=== PATIENT | male | born 1965 | race Caucasian/White ===

== ENCOUNTER 2019-02-03 09:06 | Inpatient (IN) | payer OTHER ==
[2019-02-03 09:20] VITALS: BMI 28.4
[2019-02-03] MEDS ORDERED: morphine CARPU-JECT 4 MG/1 ML DISP.SYRIN IVPUSH ONE (09:55)
[2019-02-03] MEDS ORDERED: SODIUM CHLORIDE 1,000 ML IV STA (10:02)
[2019-02-03] MEDS ORDERED: morphine SULFATE 4 MG/ML VIAL ONE (10:21)
[2019-02-03 10:54] LABS: BASO % 0.2 % (0-2.0); EOS % 2.6 % (0-4.5); HEMATOCRIT 37.1 % (35.4-49); HEMOGLOBIN 12.3 GM/dL (11.7-16.9); MCH 29.1 pg (25.7-33.7); MCHC 33.1 g/dl (32.0-35.9); MEAN CELL VOLUME 87.8 fl (80-96); MEAN PLT VOLUME 8.3 fl (7.5-11.1); MONO % 11.4 % (3.8-10.2); NEUT % 66.8 % (42.8-82.8); PLATELET COUNT 280 K/MM3 (134-434); RBC 4.23 M/mm3 (4.00-5.60); RDW 13.9 % (11.9-15.9); WHITE BLOOD COUNT 6.3 K/mm3 (4.0-10.0)
[2019-02-03 10:57] LABS: EPI CELLS 1.9 /HPF (0-5/HPF); URINE APPEARANCE CLEAR; URINE BACTERIA 6.3 /hpf (NEGATIVE); URINE BILIRUBIN NEGATIVE (NEGATIVE); URINE CASTS 8 /lpf (0-8); URINE COLOR YELLOW; URINE GLUCOSE (UA) NEGATIVE (NEGATIVE); URINE KETONE NEGATIVE (NEGATIVE); URINE LEUK ESTERASE 1+ (NEGATIVE); URINE NITRITE NEGATIVE (NEGATIVE); URINE PROTEIN NEGATIVE (NEGATIVE); URINE RBC 1 /hpf (0-4); URINE WBC 9 /hpf (0-5)
--- NOTE | 2019-02-03 11:05 | PDOC ---
Documentation entered by Valeri Gray SCRIBE, acting as scribe for Luisa Urias MD. Luisa Urias MD: This documentation has been prepared by the Marina salgado Amanda, SCRIBE, under my direction and personally reviewed by me in its entirety. I confirm that the documentation accurately reflects all work, treatment, procedures, and medical decision making performed by me. History of Present Illness - General Chief Complaint: Urinary Problem Stated Complaint: SENT BY PCP, Hematuria, urinary problem Time Seen by Provider: 02/03/19 09:28 History Source: Patient Exam Limitations: No Limitations - History of Present Illness Initial Comments: 02/03/19 10:13 The patient is a 53 year old male, with a significant past medical history of hypertension, CAD s/p 9 stents, MIs x 3, dystonia, MS, hypothyroidism, fecal transplant s/p chronic C.Diff, frequent UTIs, chronic catheter, and new diagnosis of gallstones, who presents to the emergency department with increased pain and swelling to his right testicle for 6 days despite use of antibiotics. He states he developed the pain and swelling to his right testicle on Friday with associated pain to his "bladder and kidneys." He states he was prescribed "an antibiotic" on Friday which he started. He states he developed a fever on Friday which is unlike any of his prior UTIs. He reports his Tmax on Friday at 103.7F which prompted him to call his urologist who prescribed Levaquin. The patient states he started the Levaquin regimen on Friday evening ( 500mg) and continued to have a low grade fever (100F) on Friday. He states his fever resolved yesterday, however, reports continued pain and swelling to his right testicle, as well as, pain to his lower abdomen. He reports the pain is constant and unremitting. He denies any improvement of his symptoms despite use of the antibiotics prescribed. He states he called his urologist this AM who advised the patient to come to the hospital for IV Abx Tx. He denies use of pain medications at home. Secondarily, the patient reports RUQ pain and nausea with associated dry heaving which he attributes to his new finding of gallstones. The patient denies chest pain, shortness of breath, headache and dizziness. The patient denies fever, chills, vomit, diarrhea and constipation. The patient denies dysuria, frequency, urgency and hematuria. Allergies: shellfish Social history: denies toxic habits Surgical history: Endoscopy. Colonoscopy, cardiac stents x9 PCP: Dr. Martin Mo Urology: Dr. Moore Past History - Past Medical History Allergies/Adverse Reactions: Allergies Allergy/AdvReac Type Severity Reaction Status Date / Time shellfish derived Allergy Verified 02/03/19 09:20 Home Medications: Ambulatory Orders Aspirin 81 mg PO DAILY 02/03/19 Atorvastatin Ca [Lipitor] 80 mg PO HS 02/03/19 Baclofen 10 mg PO DAILY 02/03/19 Duloxetine HCl [Cymbalta -] 90 mg PO DAILY 02/03/19 Fenofibrate Nanocrystallized [Tricor] 0 mg PO DAILY 02/03/19 Gabapentin [Neurontin] 600 mg PO TID 02/03/19 Levothyroxine Sodium [Synthroid] 137 mcg PO DAILY 02/03/19 Nadolol [Corgard] 60 mg PO DAILY 02/03/19 Oxybutynin Chloride [Oxybutynin Chloride ER] 0 mg PO DAILY 02/03/19 Ramipril 1.25 mg PO DAILY 02/03/19 Ranitidine HCl 100 mg PO DAILY 02/03/19 Ticagrelor [Brilinta] 60 mg PO DAILY 02/03/19 traZODone HCL [Trazodone HCl] 50 mg PO DAILY 02/03/19 Cardiac Disorders: Yes (CORONARY DIS) COPD: No GI Disorders: Yes Disorders: Yes Other medical history: chronic c-diff, had fecal transplant 4 years ago, MS, DYSTONIA - Surgical History Cardiac Surgery: Yes (9 stents) - Suicide/Smoking/Psychosocial Hx Smoking History: Never smoked Information on smoking cessation initiated: No Hx Alcohol Use: No Drug/Substance Use Hx: No Review of Systems - Review of Systems Able to Perform ROS?: Yes Comments:: 02/03/19 10:27 CONSTITUTIONAL: (+) fever. Absent: no chills, no fatigue EYES: Absent: visual changes ENT: Absent: ear pain, no sore throat CARDIOVASCULAR: Absent: chest pain, no palpitations RESPIRATORY: Absent: cough, no SOB GASTROINTESTINAL: (+) lower abdominal pain, nausea. Absent: no vomiting, no constipation, no diarrhea GENITOURINARY: (+) right testicular pain and swelling. kidney pain. suprapubic pain. Absent: dysuria, no frequency, no hematuria MUSCULOSKELETAL: Absent: back pain, no arthralgia, no myalgia SKIN: Absent: rash NEURO: Absent: headache *Physical Exam - Vital Signs Last Vital Signs Temp Pulse Resp BP Pulse Ox 98.3 F 63 19 132/71 97 02/03/19 09:16 02/03/19 09:16 02/03/19 09:16 02/03/19 09:16 02/03/19 09:16 - Physical Exam Comments: 02/03/19 10:28 GENERAL: The patient is in no acute distress. pleasant. HEAD: Normal with no signs of trauma. EYES: PERRLA, EOMI, sclera anicteric, conjunctiva clear. ENT: Ears normal, nares patent, oropharynx clear without exudates. Moist mucous membranes. NECK: Normal range of motion, supple without lymphadenopathy, JVD, or masses. LUNGS: Breath sounds equal, clear to auscultation bilaterally. No wheezes, and no crackles. HEART:Regular rate and rhythm, normal S1 and S2 without murmur, rub or gallop. ABDOMEN: (+) Right abdominal tenderness, suprapubic tenderness, RLQ tenderness. Soft, nnormoactive bowel sounds. No guarding, no rebound. No masses palpable. : (+) Right scrotum is firm and enlarged, high riding. Inguinal canal full and tender. indwelling catheter EXTREMITIES: Normal range of motion, no edema. No clubbing or cyanosis. No erythema, or tenderness. NEUROLOGICAL: Cranial nerves II through XII grossly intact. Normal speech. No focal neurological deficits. MUSCULOSKELETAL: Back non-tender to palpation, no CVA tenderness SKIN: Warm, Dry, normal turgor, no rashes or lesions noted. ED Treatment Course - LABORATORY CBC & Chemistry Diagram: 02/03/19 10:18 02/03/19 10:18 - ADDITIONAL ORDERS Additional order review: 02/03/19 10:18 RBC 4.23 MCV 87.8 MCHC 33.1 RDW 13.9 MPV 8.3 Neutrophils % 66.8 Lymphocytes % 19.0 Monocytes % 11.4 H Eosinophils % 2.6 Basophils % 0.2 - RADIOLOGY Radiology Studies Ordered: Category Date Time Status ABDOMEN & PELVIS CT WITH CONTR [CT] Stat CT Scan 02/03/19 09:56 Ordered ABDOMEN US -LIMITED [US] Stat Ultrasound 02/03/19 09:55 Ordered SCROTUM AND CONTENTS US [US] Stat Ultrasound 02/03/19 09:55 Ordered - Medications Given in the ED: ED Medications Discontinued Medications Generic Name Dose Route Start Last Admin Trade Name Dilcia PRN Reason Stop Dose Admin Morphine Sulfate 4 mg 02/03/19 09:55 02/03/19 10:45 Morphine Injection - IVPUSH 02/03/19 09:56 4 mg ONCE ONE Administration Medical Decision Making - Medical Decision Making 53 yo M multiple medical problems including - CAD s/p DE x 3, PCI and stent x 9 , MS with indwelling cathether x 10 years, recurrent UTIs Pt presents to the ER with a complaint of Right scrotal pain x 6 day Concern for UTI now s/p two different antibiotics And fevers (Tmax 103) Pt also reports RUQ pain and vomiting intermittently over the past 2 months (s/ p recent EGD and Colonoscopy which were reportedly normal) 02/03/19 11:02 Laboratory Tests 02/03/19 10:18 WBC 6.3 Hgb 12.3 Hct 37.1 Plt Count 280 02/03/19 11:52 Laboratory Tests 02/03/19 02/03/19 10:18 10:18 BUN 10 Creatinine 0.9 Urine Nitrite Negative Urine Bilirubin Negative Ur Leukocyte Esterase 1+ H Urine WBC (Auto) 9 Urine RBC (Auto) 1 Pt states pain went from 10/10 --> 8/10 s/p morphine will give Dilaudid 0.5mg UA ??? (note pt has been on 2 abx at this point) Cultures sent Will give Ceftriaxone (no prior cultures to guide treatment) US pending CT pending 02/03/19 13:58 Laboratory Tests 02/03/19 10:18 Total Amylase 37 Lipase 128 02/03/19 15:02 US - epididymo-orchitis, Cholelithiasis Will plan to place on observation 02/03/19 15:53 EKG - Sinus Bradycardia rate of 52 bpm, axis nml, intervals nml, no st elevation or depression *DC/Admit/Observation/Transfer Diagnosis at time of Disposition: Epididymo-orchitis, acute Fever Qualifiers: Fever type: unspecified Qualified Code(s): R50.9 - Fever, unspecified UTI (urinary tract infection) Qualifiers: Urinary tract infection type: catheter-associated UTI Indwelling urinary catheter type: indwelling urethral catheter Encounter type: initial encounter Qualified Code(s): T83.511A - Infection and inflammatory reaction due to indwelling urethral catheter, initial encounter - Discharge Dispostion Condition at time of disposition: Stable Decision to Admit order: Yes - Referrals Referrals: Martin Garsia [Primary Care Provider] - - Patient Instructions - Post Discharge Activity
[2019-02-03 11:23] LABS: ALBUMIN 3.4 g/dl (3.4-5.0); ALK PHOS 102 U/L (45-117); ANION GAP 9 MMOL/L (8-16); BILIRUBIN,TOTAL 0.3 mg/dL (0.2-1); BLOOD UREA NITROGEN 10 mg/dL (7-18); CALCIUM 8.6 mg/dL (8.5-10.1); CHLORIDE 106 mmol/L (98-107); CO2 24 mmol/L (21-32); CREATININE 0.9 mg/dL (0.55-1.3); GLUCOSE,RANDOM 103 mg/dL (74-106); POTASSIUM 4.8 mmol/L (3.5-5.1); SGOT/AST 29 U/L (15-37); SGPT/ALT 39 U/L (13-61); SODIUM 139 mmol/L (136-145); TOT PROT 7.4 g/dl (6.4-8.2)
[2019-02-03 11:39] LABS: YEAST PRESENT (NEGATIVE)
[2019-02-03] MEDS ORDERED: CEFTRIAXONE 1 GM in DEXTROSE 5%-WATER - 50 ML IVPB ONE (11:51)
[2019-02-03] MEDS ORDERED: HYDROmorphone HCL CARPU-JECT 2 MG/1 ML DISP.SYRIN IVPUSH ONE (11:51)
[2019-02-03] MEDS ORDERED: HYDROmorphone HCl 2 MG/ML VIAL ONE (12:25)
[2019-02-03] MEDS ORDERED: CEFTRIAXONE 1 GM/50 ML BAG ONE (12:30)
[2019-02-03 13:35] LABS: AMYLASE 37 U/L (25-115); LIPASE 128 U/L (73-393)
[2019-02-03] MEDS ORDERED: DOXYCYCLINE HYCLATE 100 MG CAPSULE PO ONE ×2 (14:47→15:54)
[2019-02-03] MEDS ORDERED: KETOROLAC TROMETHAMINE 15 MG/ML VIAL IVPUSH PRN (16:04)
--- NOTE | 2019-02-03 16:58 | HP ---
CHIEF COMPLAINT: pain in right testicle PCP:Dr Garsia Urologist; Teresa Rn Utilization Management [facility]: [facility] Neurologist: Dr Salinas at [facility] HISTORY OF PRESENT ILLNESS: The patient is a 53 year old male with a significant PMH of FL x 3, CAD s/p 9 stents, MS, dystonia, Parkinson's syndrome, hyperlipidemia, recurrent UTIs, chronic indwelling catheter, monthly changed, hypothyroidism that presented to the hospital complaining of right testicle pain. He started having testicle pain and swelling 5 days ago. He was given antibiotics from his Urologist, he patient doesn't remember the name. 3 days ago, he called him again and was given Levaquin 500 mg daily. He hasn't noticed any improvement of symptoms, spiked fever 103F at home and his pain got worse. The patient called his Urologist and was told to come to the hospital. When I saw him in Emergency Room, he was still complaining of pain in right testicle but states that it is improved after pain medications. He also reports abdominal pain and nausea/vomiting for the past 2 months. He was recently hospitalized in [facility] and had EGD and Colonoscopy last week. He currently denies fever, chills, nausea. ER course was notable for: (1)Morphine, Dilaulid (2)CT abdomen (3)US scrotum, abd PAST MEDICAL HISTORY: as above and history of C.Diff, s/p fecal transplant, esophagitis, PAST SURGICAL HISTORY: endarectomy on right, cardiac catheterization x 7, sinus surgery, port placement for fecal transplant, spinal cord simulator-removed, Social History: denies toxic habits lives with parents used to work as director of social media marketing Family History: mother: scleroderma, alive father: hyperlipidemia, alive siblings: thyroid cancer and hypothyroidism Allergies shellfish derived Allergy (Verified 02/03/19 09:20) HOME MEDICATIONS: Home Medications Medication Instructions Recorded Aspirin 81 mg PO DAILY 02/03/19 Atorvastatin Ca [Lipitor] 80 mg PO HS 02/03/19 Baclofen 10 mg PO DAILY 02/03/19 Duloxetine HCl [Cymbalta -] 90 mg PO DAILY 02/03/19 Fenofibrate Nanocrystallized 0 mg PO DAILY 02/03/19 [Tricor] Gabapentin [Neurontin] 600 mg PO TID 02/03/19 Levothyroxine Sodium [Synthroid] 137 mcg PO DAILY 02/03/19 Nadolol [Corgard] 60 mg PO DAILY 02/03/19 Oxybutynin Chloride [Oxybutynin 0 mg PO DAILY 02/03/19 Chloride ER] Ramipril 1.25 mg PO DAILY 02/03/19 Ranitidine HCl 100 mg PO DAILY 02/03/19 Ticagrelor [Brilinta] 60 mg PO DAILY 02/03/19 traZODone HCL [Trazodone HCl] 50 mg PO DAILY 02/03/19 REVIEW OF SYSTEMS CONSTITUTIONAL: fever, chills, diaphoresis, generalized weakness Absent: malaise, loss of appetite, weight change HEENT: Absent: rhinorrhea, nasal congestion, throat pain, CARDIOVASCULAR: Absent: chest pain, syncope, palpitations, irregular heart rate, peripheral edema RESPIRATORY: Absent: cough, shortness of breath, dyspnea with exertion, orthopnea, wheezing, GASTROINTESTINAL:abdominal pain, Absent: abdominal distension, nausea, vomiting, diarrhea, constipation GENITOURINARY: genital pain Absent: dysuria, frequency, urgency, hesitancy, hematuria, flank pain, HEMATOLOGIC/IMMUNOLOGIC: Absent: easy bleeding, easy bruising, ENDOCRINE: Absent: unexplained weight gain, unexplained weight loss NEUROLOGIC: Absent: headache, focal weakness or paresthesias, dizziness, unsteady gait PSYCHIATRIC: Absent: anxiety, depression, PHYSICAL EXAMINATION Vital Signs - 24 hr 02/03/19 09:16 Temperature 98.3 F Pulse Rate 63 Respiratory 19 Rate Blood Pressure 132/71 O2 Sat by Pulse 97 Oximetry (%) GENERAL: Awake, alert, and fully oriented, in no acute distress. HEAD: Normal with no signs of trauma. EYES: Extraocular movements intact, sclera anicteric, conjunctiva clear. EARS, NOSE, THROAT: Oropharynx clear without exudates. Moist mucous membranes. NECK: Normal range of motion, supple without lymphadenopathy, JVD, or masses. LUNGS: Breath sounds equal, clear to auscultation bilaterally. No wheezes, and no crackles. No accessory muscle use. HEART: Regular rate and rhythm, normal S1 and S2 without murmur, rub or gallop. ABDOMEN: Soft, tender in all 4 quadrants, not distended, hyperactive bowel sounds, + guarding, negative Ashraf sign, no rebound, no masses. MUSCULOSKELETAL: Normal range of motion at all joints. No bony deformities or tenderness. No CVA tenderness. UPPER EXTREMITIES: No peripheral edema. LOWER EXTREMITIES: 2+ pulses, warm, no peripheral edema. NEUROLOGICAL: Cranial nerves II-XII intact. Normal speech. Motor 4/5 in lower extremities, 4/5 in RUE, 5/5 in LUE, sensation decreased in lower extremities and right arm. PSYCHIATRIC: Cooperative. Good eye contact. Appropriate mood and affect. SKIN: Warm, dry, no rashes or lesions noted. GENITAL: right testicle swollen, erythema, tenderness to palpation, no drainage from penis, no lymphadenopathy appreciated Laboratory Results - last 24 hr 02/03/19 02/03/19 02/03/19 10:18 10:18 10:18 WBC 6.3 RBC 4.23 Hgb 12.3 Hct 37.1 MCV 87.8 MCH 29.1 MCHC 33.1 RDW 13.9 Plt Count 280 MPV 8.3 Absolute Neuts (auto) 4.2 Neutrophils % 66.8 Lymphocytes % 19.0 Monocytes % 11.4 H Eosinophils % 2.6 Basophils % 0.2 Nucleated RBC % 0 Sodium 139 Potassium 4.8 Chloride 106 Carbon Dioxide 24 Anion Gap 9 BUN 10 Creatinine 0.9 Creat Clearance w eGFR 88.27 Random Glucose 103 Calcium 8.6 Total Bilirubin 0.3 AST 29 ALT 39 Alkaline Phosphatase 102 Creatine Kinase 70 Troponin I < 0.02 Total Protein 7.4 Albumin 3.4 Total Amylase 37 Lipase 128 Urine Color Yellow Urine Appearance Clear Urine pH 5.0 Ur Specific [place] 1.020 Urine Protein Negative Urine Glucose (UA) Negative Urine Ketones Negative Urine Blood Trace Urine Nitrite Negative Urine Bilirubin Negative Urine Urobilinogen 1.0 Ur Leukocyte Esterase 1+ H Urine WBC (Auto) 9 Urine RBC (Auto) 1 Urine Casts (Auto) 8 U Epithel Cells (Auto) 1.9 Urine Bacteria (Auto) 6.3 Urine Yeast (Auto) Present ASSESSMENT/PLAN: The patient is a 53 year old male with a significant PMH of [place] x 3, CAD s/p 9 stents, MS, dystonia, Parkinson's syndrome, hyperlipidemia, recurrent UTIs, hypothyroidism that presented to the hospital complaining of right testicle pain and abdominal pain. Right testicular pain: -likely due to infection, CT abdomen and US positive for epididymo-orchitis, no improvement with antibiotics -continue Ceftriaxone and Doxycycline -Chlamydia/GC screen -cont fluids d5NS -HIV screen -ID consulted, will f/u recommendations -f/u Urology consultation -continue Tylenol for fever Abdominal pain: -diffuse, present for the past 2 months, possible cholecystitis -will consult GI, possible HIDA scan -continue NPO for now Hypothyroidism: -hold PO Synthroid for now CAD: cont home meds when able to take PO MS: -cont home meds Urinary retention: -cont home meds F/E/N: d5NS/no/NPO after midnight Disposition: med surg Problem List - Problem (1) Epididymo-orchitis, acute Code(s): N45.3 - EPIDIDYMO-ORCHITIS (2) Fever Code(s): R50.9 - FEVER, UNSPECIFIED Qualifiers: Fever type: unspecified Qualified Code(s): R50.9 - Fever, unspecified (3) UTI (urinary tract infection) Code(s): N39.0 - URINARY TRACT INFECTION, SITE NOT SPECIFIED Qualifiers: Urinary tract infection type: catheter-associated UTI Indwelling urinary catheter type: indwelling urethral catheter Encounter type: initial encounter Qualified Code(s): T83.511A - Infection and inflammatory reaction due to indwelling urethral catheter, initial encounter; N39.0 - Urinary tract infection , site not specified Visit type - Emergency Visit Emergency Visit: Yes ED Registration Date: 02/03/19 Care time: The patient presented to the Emergency Department on the above date and was hospitalized for further evaluation of their emergent condition. - New Patient This patient is new to me today: Yes Date on this admission: 02/03/19 - Critical Care Critical Care patient: No
[2019-02-03] MEDS ORDERED: AZITHROMYCIN IVPB 500 MG/250 ML BAG IVPB SCH (17:00)
[2019-02-03] MEDS ORDERED: AZITHROMYCIN IVPB 500 MG/250 ML BAG IVPB ONE (17:13)
[2019-02-03] MEDS ORDERED: DEXTROSE 5%-NORMAL SALINE 1,000 ML IV SCH (17:15)
[2019-02-03 17:43] LABS: COCAINE, UR NEGATIVE ng/ml (CUTOFF=300); METHADONE, UR NEGATIVE ng/ml (CUTOFF=300); PHENCYCLIDINE,URINE NEGATIVE ng/ml (CUTOFF=25); URINE AMPHETAMINES NEGATIVE ng/ml (CUTOFF=500); URINE BARBITURATES NEGATIVE ng/ml (CUTOFF=200); URINE BENZODIAZEPINES NEGATIVE ng/ml (CUTOFF=200)
[2019-02-03 17:45] LABS: OPIATES, URI POSITIVE ng/ml (CUTOFF=300)
--- NOTE | 2019-02-03 17:52 | CON.ID ---
Consult Consult Specialty:: infectious disease Referred by:: hospitalist Reason for Consultation:: right testicular swelling - History of Present Illness Chief Complaint: fever, right testicular swelling History of Present Illness: seen in ED 53 yo man with dystonia, MS, parkinsons disease,CAD ambulates with cane chronic hodge cath for 10 years admitted with right testicular swelling he states in early January he had right testicular swelling- mild- went to [facility] and was given an antibiotic for 7 days- swelling resolved, never had fever about 10 days later last Friday had right testicular swelling agin, went to his urologist office- dropped off a urine sample and started some antibiotic samples on Friday he started having fever, on Friday he called his urologist and was placed on Levaquin fever resolved on Friday but he had persistent testicular swellng and came to ED results of urine culture are not available at this time not sexually active no history of frequent UTIs hodge changed early January 9changed monthly) he has had chronic abdominal pain espicially with eating for last several months he had upper and lower endoscopy last week in [place] before the testicular swelling started his PMD is dr reardon he was living in [place] until 3 years ago and now lives with his parents - History Source History Provided By: Patient Limitations to Obtaining History: No Limitations - Past Medical History EXPLOSIVE ORDNANCE TECHNICIAN: Yes: Multiple Sclerosis, Parkinson's, Other (dystonia) Cardio/Vascular: Yes: CAD, MS (3) Infectious Disease: Yes: C-Diff (4 years ago in [place]- required fecal transplant) ENT: Yes: Other (chronic sinus infection) Endocrine: Yes: Hypothyroidism - Past Surgical History Past Surgical History: Yes: Carotid Endarterectomy Additional Surgical History: sinus surgery - Alcohol/Substance Use Hx Alcohol Use: No - Smoking History Smoking history: Never smoked - Social History Usual Living Arrangement: With Parent Occupation: disability Place of : [facility] History of Recent Travel: No Home Medications - Allergies Allergies/Adverse Reactions: Allergies Allergy/AdvReac Type Severity Reaction Status Date / Time shellfish derived Allergy Verified 02/03/19 09:20 - Home Medications Home Medications: Ambulatory Orders Aspirin 325 mg PO DAILY 02/03/19 Baclofen 10 mg PO BID 02/03/19 Duloxetine HCl [Cymbalta -] 90 mg PO DAILY 02/03/19 Fenofibrate Nanocrystallized [Tricor] 144 mg PO DAILY 02/03/19 Gabapentin [Neurontin] 600 mg PO QID 02/03/19 Levothyroxine Sodium [Synthroid] 137 mcg PO DAILY 02/03/19 Nadolol [Corgard] 40 mg PO DAILY 02/03/19 Oxybutynin Chloride [Oxybutynin Chloride ER] 10 mg PO BID 02/03/19 Ramipril 1.25 mg PO DAILY 02/03/19 Ranitidine HCl 150 mg PO BID 02/03/19 Ticagrelor [Brilinta] 90 mg PO BID 02/03/19 traZODone HCL [Trazodone HCl] 100 mg PO HS 02/03/19 Atorvastatin Ca [Lipitor] 40 mg PO HS 02/04/19 Montelukast Sodium [Singulair] 10 mg PO HS 02/04/19 Review of Systems - Review of Systems Constitutional: reports: No Symptoms Eyes: reports: No Symptoms HENT: reports: No Symptoms Neck: reports: No Symptoms Cardiovascular: reports: No Symptoms. denies: Chest Pain Respiratory: reports: No Symptoms. denies: Cough, SOB Gastrointestinal: reports: Abdominal Pain, Constipation. denies: Diarrhea Genitourinary: reports: No Symptoms, Testicular Pain, Other (chronic hodge) Endocrine: reports: No Symptoms Hematology/Lymphatic: reports: No Symptoms Physical Exam Vital Signs: Vital Signs Temperature 98.8 F 02/03/19 17:04 Pulse Rate 54 L 02/03/19 17:04 Respiratory Rate 17 02/03/19 17:04 Blood Pressure 133/64 02/03/19 17:04 O2 Sat by Pulse Oximetry (%) 98 02/03/19 17:04 Constitutional: Yes: Well Nourished, No Distress, Calm Eyes: Yes: Conjunctiva Clear, EOM Intact HENT: Yes: Atraumatic, Normocephalic. No: Thrush Neck: Yes: Supple, Trachea Midline Respiratory: Yes: Regular, CTA Bilaterally Gastrointestinal: Yes: Normal Bowel Sounds, Soft, Other (discomfort RUQ) ...Rectal Exam: Yes: Deferred Renal/: Yes: Hodge Present, Other (right testicular induration) Extremities: Yes: WNL, Other (bilateral foot drop) Edema: No Psychiatric: Yes: Alert, Oriented Labs: CBC, BMP 02/03/19 10:18 02/03/19 10:18 urine culture pending Imaging - Results Cat Scan: Report Reviewed Ultrasound: Report Reviewed Problem List - Problems (1) Epididymo-orchitis, acute Code(s): N45.3 - EPIDIDYMO-ORCHITIS (2) Abdominal pain Code(s): R10.9 - UNSPECIFIED ABDOMINAL PAIN (3) History of Clostridium difficile colitis Code(s): Z86.19 - PERSONAL HISTORY OF OTHER INFECTIOUS AND PARASITIC DISEASES Assessment/Plan continue rocephin, we need urine cultuer results from urologist office- please request ?symptomatic cholelithiasis- imaging other jacome unrevealing can d/c doxycycline- doubt STD probiotics, history cdiff 4 years ago urology to evaluate
[2019-02-03] MEDS ORDERED: ACETAMINOPHEN INJECTION 100 ML IVPB ONE (18:00)
--- NOTE | 2019-02-03 18:30 | PN ---
Teaching Attending Note Name of Resident: Giselle Bourgeois ATTENDING PHYSICIAN STATEMENT I saw and evaluated the patient. I reviewed the resident's note and discussed the case with the resident. I agree with the resident's findings and plan as documented with exceptions below. SUBJECTIVE: 53 yom with PMhx of CAD s/p Multiple PCI (3 PR and 9 stents per patient, last in 2010), multiple sclerosis, chronic indwelling hodge (changed monthly, last change 01/11/2019), recurrent UTIs, recently admitted to [facility] 3 weeks ago for ?epididymitis, treated with 7 days of abx, d/caio home on ?PO, had recurrent right testicular swelling/pain with lower abdominal discomfort for [address] Castro, who prescribed him abx, ?unclear name, with no improvement, given levaquin, which he took for 3 days, however reported fevers upto 103 at home, so came to the ED. Also reports daily nausea and scant vomitus, unrelated to food for last 2 months. Had EGD/colonoscopy about a week ago with Dr. Yung at [place], per patient, with some gastritis but reportedly unremarkable otherwise. Has been diagnosed with gall stones outpatient and was planned for HIDA scan. 12 point ROS done, no loss of appetite or decreased oral intake. Has chronic RLE and right hand weakness and lower extremity numbness from his multiple sclerosis. Denies recent sexual activity. OBJECTIVE: Vital Signs Period Temp Pulse Resp BP Sys/Wilkins Pulse Ox Last 24 Hr 98.3 F-98.8 F 54-63 17-19 132-133/64-71 97-98 Intake & Output 01/31/19 02/01/19 02/02/19 02/03/19 23:59 23:59 23:59 23:59 Weight 198 lb GENERAL: Awake, alert, and fully oriented, in no acute distress. HEAD: Normal with no signs of trauma. EYES: Pupils equal, round and reactive to light, extraocular movements intact, sclera anicteric, conjunctiva clear. No lid lag. EARS, NOSE, THROAT: Ears normal, nares patent, oropharynx clear without exudates. Moist mucous membranes. NECK:soft, supple, no JVD noted LUNGS: Breath sounds equal, clear to auscultation bilaterally. No wheezes, and no crackles. No accessory muscle use. HEART: Regular rate and rhythm, normal S1 and S2 ABDOMEN: Soft, lower abdominal suprapubic vague tenderness, no tenderness otherwise, neg Ashraf's sign, no voluntary or involuntary guarding or rigidity, positive bowel sounds, right inguinal bulge with cough, non tender, reducible GENITAL: right testicular swelling with erythema/induration/tenderness, indwelling hodge, no active discharge/bleed noted MUSCULOSKELETAL: limited ROM right hand and RLE, no spinal or CVA tenderness UPPER EXTREMITIES: 2+ pulses, warm, well-perfused. No cyanosis. No clubbing. No peripheral edema. LOWER EXTREMITIES: 2+ pulses, warm, well-perfused. No calf tenderness. No peripheral edema. NEUROLOGICAL: AAOX3, facial symmetry, right hand weakness, right foot drop, at baseline per patient, Decreased sensation lower extremities and bilateral hand PSYCHIATRIC: Cooperative. Good eye contact. Appropriate mood and affect. SKIN: Warm, dry, normal turgor, no rashes or lesions noted, normal capillary refill. Home Medications Medication Instructions Recorded Aspirin 81 mg PO DAILY 02/03/19 Atorvastatin Ca [Lipitor] 80 mg PO HS 02/03/19 Baclofen 10 mg PO DAILY 02/03/19 Duloxetine HCl [Cymbalta -] 90 mg PO DAILY 02/03/19 Fenofibrate Nanocrystallized 0 mg PO DAILY 02/03/19 [Tricor] Gabapentin [Neurontin] 600 mg PO TID 02/03/19 Levothyroxine Sodium [Synthroid] 137 mcg PO DAILY 02/03/19 Nadolol [Corgard] 60 mg PO DAILY 02/03/19 Oxybutynin Chloride [Oxybutynin 0 mg PO DAILY 02/03/19 Chloride ER] Ramipril 1.25 mg PO DAILY 02/03/19 Ranitidine HCl 100 mg PO DAILY 02/03/19 Ticagrelor [Brilinta] 60 mg PO DAILY 02/03/19 traZODone HCL [Trazodone HCl] 50 mg PO DAILY 02/03/19 Active Medications Acetaminophen (Ofirmev Injection -) 1,000 mg IVPB Q6H PRN PRN Reason: FEVER Heparin Sodium (Porcine) (Heparin -) 5,000 unit SQ BID [facility] Ceftriaxone Sodium 1 gm/ (Dextrose) 50 mls @ 100 mls/hr IVPB DAILY [facility]; Protocol Dextrose/Sodium Chloride (D5-Ns -) 1,000 mls @ 83 mls/hr IV [facility] Last Admin: 02/03/19 18:06 Dose: 83 mls/hr Doxycycline Hyclate 100 mg/ (Dextrose) 100 mls @ 100 mls/hr IVPB BID [facility] Stop: 02/10/19 10:59 Ketorolac Tromethamine (Toradol Injection -) 15 mg IVPUSH Q6H PRN PRN Reason: PAIN LEVEL 6-10 Stop: 02/08/19 16:03 Lactobacillus Acidophilus (Bacid -) 1 tab PO DAILY [facility] Laboratory Results - last 24 hr 02/03/19 02/03/19 02/03/19 10:18 10:18 10:18 WBC 6.3 RBC 4.23 Hgb 12.3 Hct 37.1 MCV 87.8 MCH 29.1 MCHC 33.1 RDW 13.9 Plt Count 280 MPV 8.3 Absolute Neuts (auto) 4.2 Neutrophils % 66.8 Lymphocytes % 19.0 Monocytes % 11.4 H Eosinophils % 2.6 Basophils % 0.2 Nucleated RBC % 0 Sodium 139 Potassium 4.8 Chloride 106 Carbon Dioxide 24 Anion Gap 9 BUN 10 Creatinine 0.9 Creat Clearance w eGFR 88.27 Random Glucose 103 Calcium 8.6 Total Bilirubin 0.3 AST 29 ALT 39 Alkaline Phosphatase 102 Creatine Kinase 70 Troponin I < 0.02 Total Protein 7.4 Albumin 3.4 Total Amylase 37 Lipase 128 Urine Color Yellow Urine Appearance Clear Urine pH 5.0 Ur Specific [place] 1.020 Urine Protein Negative Urine Glucose (UA) Negative Urine Ketones Negative Urine Blood Trace Urine Nitrite Negative Urine Bilirubin Negative Urine Urobilinogen 1.0 Ur Leukocyte Esterase 1+ H Urine WBC (Auto) 9 Urine RBC (Auto) 1 Urine Casts (Auto) 8 U Epithel Cells (Auto) 1.9 Urine Bacteria (Auto) 6.3 Urine Yeast (Auto) Present Opiates Screen Methadone Screen Barbiturate Screen Phencyclidine Screen Ur Amphetamines Screen MDMA (Ecstasy) Screen Benzodiazepines Screen Cocaine Screen U Marijuana (THC) Screen 02/03/19 16:50 WBC RBC Hgb Hct MCV MCH MCHC RDW Plt Count MPV Absolute Neuts (auto) Neutrophils % Lymphocytes % Monocytes % Eosinophils % Basophils % Nucleated RBC % Sodium Potassium Chloride Carbon Dioxide Anion Gap BUN Creatinine Creat Clearance w eGFR Random Glucose Calcium Total Bilirubin AST ALT Alkaline Phosphatase Creatine Kinase Troponin I Total Protein Albumin Total Amylase Lipase Urine Color Urine Appearance Urine pH Ur Specific [place] Urine Protein Urine Glucose (UA) Urine Ketones Urine Blood Urine Nitrite Urine Bilirubin Urine Urobilinogen Ur Leukocyte Esterase Urine WBC (Auto) Urine RBC (Auto) Urine Casts (Auto) U Epithel Cells (Auto) Urine Bacteria (Auto) Urine Yeast (Auto) Opiates Screen Positive A* Methadone Screen Negative Barbiturate Screen Negative Phencyclidine Screen Negative Ur Amphetamines Screen Negative MDMA (Ecstasy) Screen Negative Benzodiazepines Screen Negative Cocaine Screen Negative U Marijuana (THC) Screen Negative CT A/P/Abdominal US and scrotal US results noted EKG NSR, no acute ST-T changes ASSESSMENT AND PLAN: 53 yom with pMHx of CAD s/p multiple PCI, MS, chronic indwelling hodge recurrent UTIs, Recent admission with ?epididymitis, cholelithiasis, admitted with recurrent right epididymo-orchitis and abdominal pain. -Acute recurrent right epididymo-orchitis with failure of PO abx -Cholelithiasis -?Right uncomplicated Inguinal hernia -Chronic indwelling hodge -Multiple sclerosis with dystonia, parkinsonian syndrome -CAD s/p multiple PCI Plan: Ceftriaxone/doxycycline. Chlamydia/gonorrhea/HIV Urine/blood cx. ID/urology consult. Gentle hydration. Vague abdominal symptoms, more in suprapubic right inguinal region, Neg ashraf' s sign with normal LFTs Exam and presentation not suggestive of cholecystitis. HIDA scan, Surgery consult. PO clears for now. Continue home ASA/brillinta/nadolol/ramipril/levothyroxine/statin/fenofibrate, gabapentin/baclofen DVTPPX lovenox Dispo PT eval and CM consult for dc planning. Admit to med surg. Plan discussed with patient in detail, all questions answered. Care co-ordinated with ED RN Total admit time spent 65 min.
[2019-02-03] MEDS ORDERED: PANTOPRAZOLE SODIUM 40 MG VIAL IVPUSH SCH (18:45)
[2019-02-03] MEDS: SODIUM CHLORIDE 1,000 ML IV SCH (19:05)
[2019-02-03] MEDS ORDERED: PANTOPRAZOLE 40 MG TABLET (FP) ONE (20:23)
[2019-02-03] MEDS: LACTOBACILLUS ACIDOPHILUS 1 TABLET PO SCH (21:05)
[2019-02-03] MEDS: PANTOPRAZOLE 40 MG TABLET (FP) PO SCH (21:05)
[2019-02-03] MEDS ORDERED: ATORVASTATIN CA 80 MG TABLET (FP) PO SCH (22:00)
[2019-02-03] MEDS ORDERED: HEPARIN NA (PORCINE) 5,000 UNITS/ML 1ML VIAL SQ SCH (22:00)
[2019-02-03] MEDS ORDERED: MONTELUKAST NA 10 MG TABLET PO ONE (22:55)
[2019-02-03] MEDS ORDERED: OXYBUTYNIN CHLORIDE 5 MG TABLET PO ONE (23:09)
[2019-02-03] MEDS: ACETAMINOPHEN 1000 MG/100 ML VIAL (NON FORMULARY) IVPB PRN (23:16)
[2019-02-03] MEDS: TICAGRELOR 60 MG TABLET PO SCH (23:30)
[2019-02-03] MEDS: traZODone HCL 50 MG TABLET (FP) PO SCH (23:30)
[2019-02-03] MEDS: BACLOFEN 10 MG TABLET (FP) PO SCH (23:30)
[2019-02-03] MEDS: GABAPENTIN 400 MG CAPSULE (FP) PO SCH (23:31)
[2019-02-03] MEDS: DOXYCYCLINE INJECTION 100 MG in DEXTROSE 5%-WATER - 100 ML IVPB SCH (23:53)
[2019-02-04] MEDS: ACETAMINOPHEN 1000 MG/100 ML VIAL (NON FORMULARY) IVPB PRN ×2 (05:20→17:11)
[2019-02-04] MEDS: SODIUM CHLORIDE 1,000 ML IV SCH ×2 (05:41→22:15)
[2019-02-04] MEDS ORDERED: PATIENT'S OWN MEDICATION (NON-FORMULARY) (Levothyroxine Sodium [Synthroid] 137 MCG) PO SCH (06:00)
[2019-02-04] MEDS: LEVOTHYROXINE 112 MCG, LEVOTHYROXINE 25 MCG PO SCH (06:24)
[2019-02-04 07:16] LABS: BASO % 0.3 % (0-2.0); EOS % 4.1 % (0-4.5); HEMATOCRIT 32.6 % (35.4-49); HEMOGLOBIN 10.7 GM/dL (11.7-16.9); LYMPH % 29.3 % (8-40); MCH 28.6 pg (25.7-33.7); MEAN CELL VOLUME 86.5 fl (80-96); MEAN PLT VOLUME 8.1 fl (7.5-11.1); NEUT % 52.3 % (42.8-82.8); PLATELET COUNT 249 K/MM3 (134-434); RBC 3.76 M/mm3 (4.00-5.60); RDW 13.8 % (11.9-15.9); WHITE BLOOD COUNT 3.5 K/mm3 (4.0-10.0)
[2019-02-04 07:27] LABS: INR 1.04 (0.83-1.09); PROTHROMBIN TIME (PATIENT) 12.3 SEC (9.7-13.0)
[2019-02-04 07:29] LABS: ALBUMIN 2.9 g/dl (3.4-5.0); ALK PHOS 82 U/L (45-117); ANION GAP 7 MMOL/L (8-16); BILIRUBIN,TOTAL 0.2 mg/dL (0.2-1); BLOOD UREA NITROGEN 9 mg/dL (7-18); CALCIUM 8.2 mg/dL (8.5-10.1); CHLORIDE 109 mmol/L (98-107); CO2 25 mmol/L (21-32); CREATININE 0.9 mg/dL (0.55-1.3); GLUCOSE,RANDOM 103 mg/dL (74-106); MAGNESIUM 2.2 mg/dL (1.8-2.4); PHOSPHOROUS 4.5 mg/dL (2.5-4.9); POTASSIUM 4.2 mmol/L (3.5-5.1); SGOT/AST 20 U/L (15-37); SGPT/ALT 27 U/L (13-61); SODIUM 141 mmol/L (136-145); TOT PROT 6.2 g/dl (6.4-8.2)
[2019-02-04 07:30] LABS: ACTIVATED PTT 34.9 SECONDS (25.2-36.5)
[2019-02-04] MEDS ORDERED: cefTRIAXone SODIUM 1 GM VIAL ONE (08:48)
[2019-02-04] MEDS ORDERED: DEXTROSE 5%-WATER - 50 ML IVPB ONE (08:48)
--- NOTE | 2019-02-04 09:54 | CONSULT ---
- Consultation REQUESTING PROVIDER: CONSULT REQUEST: We have been asked to surgically evaluate this patient for ( cholecystitis). PCP:Jhon Rosenthal MD HISTORY OF PRESENT ILLNESS: 53 y/o M w/ PMHx CAD s/p Multiple PCI (3 SC and 9 stents per patient, last in 2010), multiple sclerosis, chronic indwelling hodge (changed monthly, last change 01/11/2019), recurrent UTIs, now a/w recurrent right testicular swelling/ pain with lower abdominal discomfort. Surgery consulted for evaluation of cholecystitis due to CT scan findings. Pt reports he has been having generalized abdominal pain and nausea for the past 2 months. Reports pain and nausea occur after eating and has occasional dry heavy and nonbilious/nonbloody vomiting. States he has been avoiding high fat foods and has tried various diets including gluten free without reolution. Reports he is able to tolerate rice without issue. Had EGD/colonoscopy about a week ago with Dr. Yung at [place], per patient, with some gastritis but reportedly unremarkable otherwise. Denies prior abdominal surgery, issues with constipation. Has soft stools at times, none recently. Has a h/o fecal transplant for cdiff. PMHx: as above PSHx: Sinus surgery, PCI (last in 2010) Home Medications Medication Instructions Recorded Aspirin 325 mg PO DAILY 02/03/19 Atorvastatin Ca [Lipitor] 80 mg PO HS 02/03/19 Baclofen 10 mg PO HS 02/03/19 Duloxetine HCl [Cymbalta -] 90 mg PO DAILY 02/03/19 Fenofibrate Nanocrystallized 0 mg PO DAILY 02/03/19 [Tricor] Gabapentin [Neurontin] 600 mg PO TID 02/03/19 Levothyroxine Sodium [Synthroid] 137 mcg PO DAILY 02/03/19 Nadolol [Corgard] 60 mg PO DAILY 02/03/19 Oxybutynin Chloride [Oxybutynin 0 mg PO DAILY 02/03/19 Chloride ER] Ramipril 1.25 mg PO DAILY 02/03/19 Ranitidine HCl 100 mg PO BID 02/03/19 Ticagrelor [Brilinta] 60 mg PO BID 02/03/19 traZODone HCL [Trazodone HCl] 50 mg PO HS 02/03/19 Montelukast Sodium [Singulair] 10 mg PO HS 02/04/19 Allergies Allergy/AdvReac Type Severity Reaction Status Date / Time shellfish derived Allergy Verified 02/03/19 09:20 REVIEW OF SYSTEMS: CONSTITUTIONAL: Absent: +fever CARDIOVASCULAR: Absent: chest pain, syncope RESPIRATORY: Absent: cough, shortness of breath GI: Absent: +abdominal pain, (-)abdominal distension, +nausea, vomiting, (-)diarrhea , (-)constipation PHYSICAL EXAM: GENERAL: Awake, alert, and fully oriented, in no acute distress. HEAD: Normal with no signs of trauma. LUNGS: Unlabored on RA, No accessory muscle use. HEART: Regular rate and rhythm. No murmurs ABDOMEN: Soft, + diffuse ttp with some mild increase in RUQ, no rebound, no guarding, normoactive bowel sounds. Groin: R inguinal hernia, easily reducible, no ttp. Vital Signs Temperature 97.5 F L 02/04/19 06:00 Pulse Rate 57 L 02/04/19 09:39 Respiratory Rate 18 02/04/19 09:39 Blood Pressure 139/90 02/04/19 09:39 O2 Sat by Pulse Oximetry (%) 98 02/03/19 22:00 Lab Results WBC 3.5 K/mm3 (4.0-10.0) L 02/04/19 06:00 RBC 3.76 M/mm3 (4.00-5.60) L 02/04/19 06:00 Hgb 10.7 GM/dL (11.7-16.9) L 02/04/19 06:00 Hct 32.6 % (35.4-49) L 02/04/19 06:00 MCV 86.5 fl (80-96) 02/04/19 06:00 MCHC 33.0 g/dl (32.0-35.9) 02/04/19 06:00 RDW 13.8 % (11.9-15.9) 02/04/19 06:00 Plt Count 249 K/MM3 (134-434) 02/04/19 06:00 Sodium 141 mmol/L (136-145) 02/04/19 06:00 Potassium 4.2 mmol/L (3.5-5.1) 02/04/19 06:00 Chloride 109 mmol/L (98-107) H 02/04/19 06:00 Carbon Dioxide 25 mmol/L (21-32) 02/04/19 06:00 Anion Gap 7 MMOL/L (8-16) L 02/04/19 06:00 BUN 9 mg/dL (7-18) 02/04/19 06:00 Creatinine 0.9 mg/dL (0.55-1.3) 02/04/19 06:00 Random Glucose 103 mg/dL (74-106) 02/04/19 06:00 Calcium 8.2 mg/dL (8.5-10.1) L 02/04/19 06:00 INR 1.04 (0.83-1.09) 02/04/19 06:00 A/P: 53 y/o M w/ PMHx CAD s/p Multiple PCI (3 SC and 9 stents per patient, last in 2010), multiple sclerosis, chronic indwelling hodge (changed monthly, last change 01/11/2019), recurrent UTIs, now a/w recurrent right testicular swelling/ pain with lower abdominal discomfort. Surgery consulted for evaluation of cholecystitis due to CT scan findings. Sxs and labs do not seem to be consistent with cholecystitis. Will await HIDA scan results however as pt is high risk (last SC was at an respiratory care specialist facility after sinus surgery) recommend tertiary care center for any surgical interventions. d/w attending Dr Martinez
[2019-02-04] MEDS ORDERED: BACLOFEN 10 MG TABLET (FP) PO SCH (10:00)
[2019-02-04] MEDS ORDERED: TICAGRELOR 60 MG TABLET PO SCH (10:00)
[2019-02-04] MEDS ORDERED: PT OWN MED DRAWER 7, Y5N ONE (11:33)
[2019-02-04] MEDS: SOLIFENACIN SUCCINATE 5 MG TAB (FP) PO SCH (11:42)
[2019-02-04] MEDS: PANTOPRAZOLE 40 MG TABLET (FP) PO SCH (11:43)
[2019-02-04] MEDS: GABAPENTIN 300 MG CAPSULE (FP) PO SCH (11:43)
[2019-02-04] MEDS: ASPIRIN 81 MG CHEWABLE TABLETS PO SCH (11:43)
[2019-02-04] MEDS: LACTOBACILLUS ACIDOPHILUS 1 TABLET PO SCH (11:44)
[2019-02-04] MEDS: DULoxetine HCL 30 MG CAPSULE.DR (FP) PO SCH (11:44)
[2019-02-04] MEDS: ENOXAPARIN NA (PORCINE) 40 MG/0.4 ML DISP.SYRIN SQ SCH (11:45)
[2019-02-04] MEDS: TICAGRELOR 60 MG TABLET PO SCH ×2 (11:46→22:09)
[2019-02-04] MEDS: CEFTRIAXONE 1 GM in DEXTROSE 5%-WATER - 50 ML IVPB SCH (11:50)
--- NOTE | 2019-02-04 12:08 | EKG ---
Test Reason : Blood Pressure : / mmHG Vent. Rate : 052 BPM Atrial Rate : 052 BPM P-R Int : 170 ms QRS Dur : 100 ms QT Int : 472 ms P-R-T Axes : 033 013 021 degrees QTc Int : 438 ms POOR DATA QUALITY, INTERPRETATION MAY BE ADVERSELY AFFECTED SINUS BRADYCARDIA OTHERWISE NORMAL ECG NO PREVIOUS ECGS AVAILABLE Confirmed by TRISTA GALEAS MD ([id number]) on 02/04/2019 12:08:23 PM Referred By: Confirmed By:TRISTA GALEAS MD
--- NOTE | 2019-02-04 13:34 | PN ---
Teaching Attending Note Name of Resident: Giselle Bourgeois ATTENDING PHYSICIAN STATEMENT I saw and evaluated the patient. I reviewed the resident's note and discussed the case with the resident. I agree with the resident's findings and plan as documented with exceptions below. SUBJECTIVE: Patient seen and examined. still with right scrotal/inguinal pain but improved. No pain otherwise, no nausea/vomiting or new concerns. Asking for food. OBJECTIVE: Vital Signs Period Temp Pulse Resp BP Sys/Wilkins Pulse Ox Last 24 Hr 97.5 F-98.8 F 51-57 17-20 113-147/61-90 98-98 Intake & Output 02/01/19 02/02/19 02/03/19 02/04/19 23:59 23:59 23:59 23:59 Intake Total 400 1100 Balance 400 1100 Weight 200 lb 9 oz General: sitting in bed in no acute distress Chest: CTAb, no rales or wheezing Abdomen:Soft, NT throughout, ND, right inguinal hernia with coughing, neg Ashraf 's sign Genital: right scrotal swelling/induration/mild tenderness, improved exam Extremities: no edema Home Medications Medication Instructions Recorded Aspirin 325 mg PO DAILY 02/03/19 Atorvastatin Ca [Lipitor] 80 mg PO HS 02/03/19 Baclofen 10 mg PO HS 02/03/19 Duloxetine HCl [Cymbalta -] 90 mg PO DAILY 02/03/19 Fenofibrate Nanocrystallized 0 mg PO DAILY 02/03/19 [Tricor] Gabapentin [Neurontin] 600 mg PO TID 02/03/19 Levothyroxine Sodium [Synthroid] 137 mcg PO DAILY 02/03/19 Nadolol [Corgard] 60 mg PO DAILY 02/03/19 Oxybutynin Chloride [Oxybutynin 0 mg PO DAILY 02/03/19 Chloride ER] Ramipril 1.25 mg PO DAILY 02/03/19 Ranitidine HCl 100 mg PO BID 02/03/19 Ticagrelor [Brilinta] 60 mg PO BID 02/03/19 traZODone HCL [Trazodone HCl] 50 mg PO HS 02/03/19 Montelukast Sodium [Singulair] 10 mg PO HS 02/04/19 Active Medications Acetaminophen (Ofirmev Injection -) 1,000 mg IVPB Q6H PRN PRN Reason: FEVER Last Admin: 02/04/19 05:20 Dose: 1,000 mg Aspirin (Asa -) 81 mg PO DAILY [facility] Last Admin: 02/04/19 11:43 Dose: 81 mg Atorvastatin Calcium (Lipitor -) 80 mg PO HS [facility] Last Admin: 02/03/19 22:34 Dose: Not Given Baclofen (Lioresal -) 10 mg PO HS [facility] Last Admin: 02/03/19 23:30 Dose: 10 mg Duloxetine HCl (Cymbalta -) 90 mg PO DAILY [facility] Last Admin: 02/04/19 11:44 Dose: 90 mg Enoxaparin Sodium (Lovenox -) 40 mg SQ DAILY [facility] Last Admin: 02/04/19 11:45 Dose: 40 mg Fenofibric Acid (Trilipix -) 45 mg PO DAILY [facility] Gabapentin (Neurontin -) 1,200 mg PO HS [facility] Last Admin: 02/03/19 23:31 Dose: 1,200 mg Gabapentin (Neurontin -) 600 mg PO DAILY [facility] Last Admin: 02/04/19 11:43 Dose: 600 mg Ceftriaxone Sodium 1 gm/ (Dextrose) 50 mls @ 100 mls/hr IVPB DAILY [facility]; Protocol Last Admin: 02/04/19 11:50 Dose: 100 mls/hr Sodium Chloride (Normal Saline -) 1,000 mls @ 75 mls/hr IV ASDIR [facility] Last Admin: 02/04/19 05:41 Dose: 75 mls/hr Ketorolac Tromethamine (Toradol Injection -) 15 mg IVPUSH Q6H PRN PRN Reason: PAIN LEVEL 6-10 Stop: 02/08/19 16:03 Last Admin: 02/04/19 12:10 Dose: 15 mg Lactobacillus Acidophilus (Bacid -) 1 tab PO DAILY [facility] Last Admin: 02/04/19 11:44 Dose: 1 tab Levothyroxine Sodium 112 mcg/ (Levothyroxine Sodium 25 mcg) 137 mcg PO DAILY@ 0700 [facility] Last Admin: 02/04/19 06:24 Dose: Not Given Nadolol (Corgard -) 60 mg PO DAILY [facility] Pantoprazole Sodium (Protonix -) 40 mg PO DAILY [facility] Last Admin: 02/04/19 11:43 Dose: 40 mg Ramipril (Altace -) 1.25 mg PO DAILY [facility] Solifenacin (Vesicare -) 5 mg PO DAILY [facility] Last Admin: 02/04/19 11:42 Dose: 5 mg Ticagrelor (Brilinta) 60 mg PO BID [facility] Last Admin: 02/04/19 11:46 Dose: 60 mg Trazodone HCl (Desyrel -) 50 mg PO HS [facility] Last Admin: 02/03/19 23:30 Dose: 50 mg Laboratory Results - last 24 hr 02/03/19 02/03/19 02/03/19 10:18 11:33 16:50 WBC RBC Hgb Hct MCV MCH MCHC RDW Plt Count MPV Absolute Neuts (auto) Neutrophils % Lymphocytes % Monocytes % Eosinophils % Basophils % Nucleated RBC % PT with INR INR PTT (Actin FS) Sodium 139 Potassium 4.8 Chloride 106 Carbon Dioxide 24 Anion Gap 9 BUN 10 Creatinine 0.9 Creat Clearance w eGFR 88.27 Random Glucose 103 Calcium 8.6 Phosphorus Magnesium Total Bilirubin 0.3 AST 29 ALT 39 Alkaline Phosphatase 102 Creatine Kinase 70 Troponin I < 0.02 Total Protein 7.4 Albumin 3.4 Total Amylase 37 Lipase 128 TSH Free T4 Opiates Screen Positive A* Methadone Screen Negative Barbiturate Screen Negative Phencyclidine Screen Negative Ur Amphetamines Screen Negative MDMA (Ecstasy) Screen Negative Benzodiazepines Screen Negative Cocaine Screen Negative U Marijuana (THC) Screen Negative HIV 1&2 Antibody Screen Negative HIV P24 Antigen Negative 02/04/19 02/04/19 02/04/19 06:00 06:00 06:00 WBC 3.5 L RBC 3.76 L Hgb 10.7 L Hct 32.6 L MCV 86.5 MCH 28.6 MCHC 33.0 RDW 13.8 Plt Count 249 MPV 8.1 Absolute Neuts (auto) 1.9 Neutrophils % 52.3 D Lymphocytes % 29.3 D Monocytes % 14.0 H Eosinophils % 4.1 Basophils % 0.3 Nucleated RBC % 0 PT with INR 12.30 INR 1.04 PTT (Actin FS) 34.9 Sodium 141 Potassium 4.2 Chloride 109 H Carbon Dioxide 25 Anion Gap 7 L BUN 9 Creatinine 0.9 Creat Clearance w eGFR 88.27 Random Glucose 103 Calcium 8.2 L Phosphorus 4.5 Magnesium 2.2 Total Bilirubin 0.2 AST 20 ALT 27 Alkaline Phosphatase 82 Creatine Kinase Troponin I Total Protein 6.2 L Albumin 2.9 L Total Amylase Lipase TSH 5.50 H Free T4 Opiates Screen Methadone Screen Barbiturate Screen Phencyclidine Screen Ur Amphetamines Screen MDMA (Ecstasy) Screen Benzodiazepines Screen Cocaine Screen U Marijuana (THC) Screen HIV 1&2 Antibody Screen HIV P24 Antigen 02/04/19 09:00 WBC RBC Hgb Hct MCV MCH MCHC RDW Plt Count MPV Absolute Neuts (auto) Neutrophils % Lymphocytes % Monocytes % Eosinophils % Basophils % Nucleated RBC % PT with INR INR PTT (Actin FS) Sodium Potassium Chloride Carbon Dioxide Anion Gap BUN Creatinine Creat Clearance w eGFR Random Glucose Calcium Phosphorus Magnesium Total Bilirubin AST ALT Alkaline Phosphatase Creatine Kinase Troponin I Total Protein Albumin Total Amylase Lipase TSH Free T4 1.03 Opiates Screen Methadone Screen Barbiturate Screen Phencyclidine Screen Ur Amphetamines Screen MDMA (Ecstasy) Screen Benzodiazepines Screen Cocaine Screen U Marijuana (THC) Screen HIV 1&2 Antibody Screen HIV P24 Antigen Microbiology 02/03/19 10:18 Urine - Urine Hodge Urine Culture - Final NO GROWTH OBTAINED ASSESSMENT AND PLAN: 53 yom with pMHx of CAD s/p multiple PCI, MS, chronic indwelling hodge recurrent UTIs, Recent admission with ?epididymitis, cholelithiasis, admitted with recurrent right epididymo-orchitis and abdominal pain. -Acute recurrent right epididymo-orchitis with failure of PO abx -Cholelithiasis -?Right uncomplicated Inguinal hernia -Chronic indwelling hodge -Multiple sclerosis with dystonia, parkinsonian syndrome -CAD s/p multiple PCI Plan: ID input noted. Ceftriaxone day 2. HIV neg. Chlamydia/gonorrhea ordered but low suspicion. Urine cx neg. Urology input. Gentle hydration. Surgery input noted. Follow up HIDA scan, advance diet if no concerns. Low clinical suspicion for acute cholecystitis. Continue home ASA/brillinta/nadolol/ramipril/levothyroxine/statin/fenofibrate, gabapentin/baclofen DVTPPX lovenox Dispo PT eval and CM consult for dc planning. Plan discussed with patient and nursing in detail, all questions answered.
[2019-02-04] MEDS: NADOLOL 20 MG TABLET (FP) PO SCH (13:46)
[2019-02-04] MEDS: FENOFIBRIC ACID 45 MG CAP PO SCH (13:47)
[2019-02-04] MEDS: RAMIPRIL 1.25 MG CAPSULE PO SCH (13:47)
[2019-02-04] MEDS: DOXYCYCLINE INJECTION 100 MG in DEXTROSE 5%-WATER - 100 ML IVPB SCH (13:49)
--- NOTE | 2019-02-04 13:57 | PN ---
Progress Note (short form) - Note Progress Note: reports continued abdominal discomfort slightly less groin/testicular pain Vital Signs Period Temp Pulse Resp BP Sys/Wilkins Pulse Ox Last 24 Hr 97.5 F-98.8 F 51-81 17-20 113-153/61-92 98-98 cor-rrr lungs clear abd soft, mild discomfort throughout +right testicular induration +hodge ext no edema CBC, BMP 02/04/19 06:00 02/04/19 06:00 Microbiology 02/03/19 10:18 Urine - Urine Hodge Urine Culture - Final NO GROWTH OBTAINED Current Medications Acetaminophen (Ofirmev Injection -) 1,000 mg IVPB Q6H PRN PRN Reason: FEVER Aspirin (Asa -) 81 mg PO DAILY [facility] Last Admin: 02/04/19 11:43 Dose: 81 mg Atorvastatin Calcium (Lipitor -) 40 mg PO HS [facility] Baclofen (Lioresal -) 10 mg PO HS [facility] Last Admin: 02/03/19 23:30 Dose: 10 mg Duloxetine HCl (Cymbalta -) 90 mg PO DAILY [facility] Last Admin: 02/04/19 11:44 Dose: 90 mg Enoxaparin Sodium (Lovenox -) 40 mg SQ DAILY [facility] Last Admin: 02/04/19 11:45 Dose: 40 mg Fenofibric Acid (Trilipix -) 45 mg PO DAILY [facility] Last Admin: 02/04/19 13:47 Dose: 45 mg Gabapentin (Neurontin -) 1,200 mg PO HS [facility] Last Admin: 02/03/19 23:31 Dose: 1,200 mg Gabapentin (Neurontin -) 600 mg PO DAILY [facility] Last Admin: 02/04/19 11:43 Dose: 600 mg Ceftriaxone Sodium 1 gm/ (Dextrose) 50 mls @ 100 mls/hr IVPB DAILY [facility]; Protocol Last Admin: 02/04/19 11:50 Dose: 100 mls/hr Sodium Chloride (Normal Saline -) 1,000 mls @ 75 mls/hr IV ASDIR [facility] Last Admin: 02/04/19 05:41 Dose: 75 mls/hr Ketorolac Tromethamine (Toradol Injection -) 15 mg IVPUSH Q6H PRN PRN Reason: PAIN LEVEL 6-10 Stop: 02/08/19 16:03 Last Admin: 02/04/19 12:10 Dose: 15 mg Lactobacillus Acidophilus (Bacid -) 1 tab PO DAILY [facility] Last Admin: 02/04/19 11:44 Dose: 1 tab Levothyroxine Sodium 112 mcg/ (Levothyroxine Sodium 25 mcg) 137 mcg PO DAILY@ 0700 [facility] Last Admin: 02/04/19 06:24 Dose: Not Given Montelukast Sodium (Singulair -) 10 mg PO [facility] Nadolol (Corgard -) 60 mg PO DAILY [facility] Last Admin: 02/04/19 13:46 Dose: 60 mg Pantoprazole Sodium (Protonix -) 40 mg PO DAILY [facility] Last Admin: 02/04/19 11:43 Dose: 40 mg Ramipril (Altace -) 1.25 mg PO DAILY [facility] Last Admin: 02/04/19 13:47 Dose: 1.25 mg Solifenacin (Vesicare -) 5 mg PO DAILY [facility] Last Admin: 02/04/19 11:42 Dose: 5 mg Ticagrelor (Brilinta) 60 mg PO BID [facility] Last Admin: 02/04/19 11:46 Dose: 60 mg Trazodone HCl (Desyrel -) 50 mg PO [facility] Last Admin: 02/03/19 23:30 Dose: 50 mg a/p right epiddiymitis- Called the urologist office to get culture results urine culture results faxed in chart ecoli UTI resistant to amp and bactrim, sensitive to ceftriaxone and levaquin abdominal discomfort negative endoscopy as outpt awaiting hida scan results f/u with urology continue ceftriaxone for now chronic hodge catheter history MS Problem List - Problems (1) Epididymo-orchitis, acute Code(s): N45.3 - EPIDIDYMO-ORCHITIS (2) Abdominal pain Code(s): R10.9 - UNSPECIFIED ABDOMINAL PAIN
--- NOTE | 2019-02-04 18:08 | PN ---
Physical Exam: SUBJECTIVE: Patient seen and examined, still complaining of right scrotal pain but much improved. OBJECTIVE: Vital Signs Period Temp Pulse Resp BP Sys/Wilkins Pulse Ox Last 24 Hr 97.5 F-98.2 F 51-81 18-20 113-153/61-92 98 GENERAL: The patient is awake, alert, and fully oriented, lying in bed. HEAD: Normal with no signs of trauma. EYES: Extraocular movements intact ENT: Oropharynx clear without exudates, moist mucous membranes. NECK: Trachea midline, full range of motion, supple. LUNGS: Clear to auscultation bilaterally, no wheezes, no crackles, no accessory muscle use. HEART: Regular rate and rhythm, S1, S2 without murmur, rub or gallop. ABDOMEN: Soft, mild tenderness in RLQ, nondistended, normoactive bowel sounds. EXTREMITIES: 2+ pulses, warm, no edema. NEUROLOGICAL: Normal speech, gait not observed. PSYCH: Normal mood, normal affect. SKIN: Warm, dry, normal turgor. :right scrotum: enlarged, erythema, tender to palpation, no drainage, indwelling cath in urethra, draining yellow urine. Laboratory Results - last 24 hr 02/03/19 02/04/19 02/04/19 11:33 06:00 06:00 WBC 3.5 L RBC 3.76 L Hgb 10.7 L Hct 32.6 L MCV 86.5 MCH 28.6 MCHC 33.0 RDW 13.8 Plt Count 249 MPV 8.1 Absolute Neuts (auto) 1.9 Neutrophils % 52.3 D Lymphocytes % 29.3 D Monocytes % 14.0 H Eosinophils % 4.1 Basophils % 0.3 Nucleated RBC % 0 PT with INR 12.30 INR 1.04 PTT (Actin FS) 34.9 Sodium Potassium Chloride Carbon Dioxide Anion Gap BUN Creatinine Creat Clearance w eGFR Random Glucose Calcium Phosphorus Magnesium Total Bilirubin AST ALT Alkaline Phosphatase Total Protein Albumin TSH Free T4 HIV 1&2 Antibody Screen Negative HIV P24 Antigen Negative 02/04/19 02/04/19 06:00 09:00 WBC RBC Hgb Hct MCV MCH MCHC RDW Plt Count MPV Absolute Neuts (auto) Neutrophils % Lymphocytes % Monocytes % Eosinophils % Basophils % Nucleated RBC % PT with INR INR PTT (Actin FS) Sodium 141 Potassium 4.2 Chloride 109 H Carbon Dioxide 25 Anion Gap 7 L BUN 9 Creatinine 0.9 Creat Clearance w eGFR 88.27 Random Glucose 103 Calcium 8.2 L Phosphorus 4.5 Magnesium 2.2 Total Bilirubin 0.2 AST 20 ALT 27 Alkaline Phosphatase 82 Total Protein 6.2 L Albumin 2.9 L TSH 5.50 H Free T4 1.03 HIV 1&2 Antibody Screen HIV P24 Antigen Active Medications Generic Name Dose Route Start Last Admin Trade Name Freq PRN Reason Stop Dose Admin Acetaminophen 1,000 mg 02/04/19 13:55 02/04/19 17:11 Ofirmev Injection - IVPB 1,000 mg Q6H PRN Administration FEVER Aspirin 81 mg 02/04/19 10:00 02/04/19 11:43 Asa - PO 81 mg DAILY KEVYN Administration Atorvastatin Calcium 40 mg 02/04/19 22:00 Lipitor - PO HS KEVYN Baclofen 10 mg 02/03/19 23:00 02/03/19 23:30 Lioresal - PO 10 mg HS KEVYN Administration Duloxetine HCl 90 mg 02/04/19 10:00 02/04/19 11:44 Cymbalta - PO 90 mg DAILY KEVYN Administration Enoxaparin Sodium 40 mg 02/04/19 10:00 02/04/19 11:45 Lovenox - SQ 40 mg DAILY KEVYN Administration Fenofibric Acid 45 mg 02/04/19 10:00 02/04/19 13:47 Trilipix - PO 45 mg DAILY KEVYN Administration Gabapentin 1,200 mg 02/03/19 22:00 02/03/19 23:31 Neurontin - PO 1,200 mg HS KEVYN Administration Gabapentin 600 mg 02/04/19 10:00 02/04/19 11:43 Neurontin - PO 600 mg DAILY KEVYN Administration Ceftriaxone Sodium 1 gm/ 50 mls @ 100 mls/hr 02/04/19 10:00 02/04/19 11:50 Dextrose IVPB 100 mls/hr DAILY KEVYN Administration Protocol Sodium Chloride 1,000 mls @ 75 mls/hr 02/03/19 19:00 02/04/19 05:41 Normal Saline - IV 75 mls/hr ASDIR KEVYN Administration Ketorolac Tromethamine 15 mg 02/03/19 16:04 02/04/19 12:10 Toradol Injection - IVPUSH 02/08/19 16:03 15 mg Q6H PRN Administration PAIN LEVEL 6-10 Lactobacillus Acidophilus 1 tab 02/03/19 17:15 02/04/19 11:44 Bacid - PO 1 tab DAILY KEVYN Administration Levothyroxine Sodium 112 mcg/ 137 mcg 02/04/19 07:00 02/04/19 06:24 Levothyroxine Sodium 25 mcg PO Not Given DAILY@0700 KEVYN Montelukast Sodium 10 mg 02/04/19 22:00 Singulair - PO HS KEVYN Nadolol 60 mg 02/04/19 10:00 02/04/19 13:46 Corgard - PO 60 mg DAILY KEVYN Administration Pantoprazole Sodium 40 mg 02/03/19 19:15 02/04/19 11:43 Protonix - PO 40 mg DAILY KEVYN Administration Ramipril 1.25 mg 02/04/19 10:00 02/04/19 13:47 Altace - PO 1.25 mg DAILY KEVYN Administration Solifenacin 5 mg 02/04/19 10:00 02/04/19 11:42 Vesicare - PO 5 mg DAILY KEVYN Administration Ticagrelor 60 mg 02/03/19 22:54 02/04/19 11:46 Brilinta PO 60 mg BID KEVYN Administration Trazodone HCl 50 mg 02/03/19 22:54 02/03/19 23:30 Desyrel - PO 50 mg HS KEVYN Administration ASSESSMENT/PLAN: The patient is a 53 year old male with a significant PMH of CT x 3, CAD s/p 9 stents, MS, dystonia, Parkinson's syndrome, hyperlipidemia, recurrent UTIs, hypothyroidism that presented to the hospital complaining of right testicle pain and abdominal pain. Right testicular pain: -likely due to infection, CT abdomen and US positive for epididymo-orchitis, with no improvement with antibiotics -continue Ceftriaxone and Doxycycline -Chlamydia/GC screen ordered -cont fluids NS -HIV screen -ID consulted, will f/u recommendations -f/u Urology consultation -continue Tylenol, Toradol for fever and pain in scrotum Abdominal pain: -diffuse, present for the past 2 months, possible cholecystitis -HIDA scan-pending report -continue liquid diet today Hypothyroidism: -Synthroid for now CAD: -h/o of CT and stents -continue home meds MS: -cont home meds Urinary retention: -cont Oxybutynin F/E/N: NS/no/liquid Disposition: med surg Problem List - Problems (1) Epididymo-orchitis, acute Code(s): N45.3 - EPIDIDYMO-ORCHITIS (2) Fever Code(s): R50.9 - FEVER, UNSPECIFIED Qualifiers: Fever type: unspecified Qualified Code(s): R50.9 - Fever, unspecified (3) UTI (urinary tract infection) Code(s): N39.0 - URINARY TRACT INFECTION, SITE NOT SPECIFIED Qualifiers: Urinary tract infection type: catheter-associated UTI Indwelling urinary catheter type: indwelling urethral catheter Encounter type: initial encounter Qualified Code(s): T83.511A - Infection and inflammatory reaction due to indwelling urethral catheter, initial encounter; N39.0 - Urinary tract infection , site not specified Visit type - Emergency Visit Emergency Visit: Yes ED Registration Date: 02/03/19 Care time: The patient presented to the Emergency Department on the above date and was hospitalized for further evaluation of their emergent condition. - New Patient This patient is new to me today: No - Critical Care Critical Care patient: No - Discharge Referral Referred to [facility] Med P.C.: No
[2019-02-04] MEDS ORDERED: traZODone HCL 50 MG TABLET (FP) PO SCH (22:00)
[2019-02-04] MEDS: ATORVASTATIN CA 40 MG TABLET (FP) PO SCH (22:05)
[2019-02-04] MEDS: GABAPENTIN 400 MG CAPSULE (FP) PO SCH (22:06)
[2019-02-04] MEDS: BACLOFEN 10 MG TABLET (FP) PO SCH (22:06)
[2019-02-04] MEDS: MONTELUKAST NA 10 MG TABLET PO SCH (22:06)
[2019-02-04] MEDS: traZODone HCL 50 MG TABLET (FP) PO SCH (22:06)
[2019-02-05] MEDS ORDERED: PT OWN MED DRAWER 7, Y5N ONE ×2 (05:53→10:07)
[2019-02-05] MEDS: LEVOTHYROXINE 112 MCG, LEVOTHYROXINE 25 MCG PO SCH (06:04)
[2019-02-05] MEDS: ACETAMINOPHEN 1000 MG/100 ML VIAL (NON FORMULARY) IVPB PRN ×3 (06:32→23:46)
[2019-02-05 08:23] LABS: BASO % 0.2 % (0-2.0); EOS % 3.5 % (0-4.5); HEMATOCRIT 33.7 % (35.4-49); HEMOGLOBIN 11.1 GM/dL (11.7-16.9); LYMPH % 24.8 % (8-40); MCH 28.5 pg (25.7-33.7); MEAN CELL VOLUME 86.4 fl (80-96); NEUT % 57.5 % (42.8-82.8); PLATELET COUNT 257 K/MM3 (134-434); RDW 13.8 % (11.9-15.9); WHITE BLOOD COUNT 4.1 K/mm3 (4.0-10.0)
[2019-02-05 08:47] LABS: ALK PHOS 82 U/L (45-117); ANION GAP 5 MMOL/L (8-16); BILIRUBIN,TOTAL 0.2 mg/dL (0.2-1); BLOOD UREA NITROGEN 8 mg/dL (7-18); CALCIUM 8.8 mg/dL (8.5-10.1); CHLORIDE 108 mmol/L (98-107); CO2 27 mmol/L (21-32); CREATININE 0.9 mg/dL (0.55-1.3); GLUCOSE,RANDOM 109 mg/dL (74-106); POTASSIUM 3.9 mmol/L (3.5-5.1); SGOT/AST 17 U/L (15-37); SGPT/ALT 22 U/L (13-61); SODIUM 140 mmol/L (136-145); TOT PROT 6.3 g/dl (6.4-8.2)
[2019-02-05] MEDS ORDERED: DEXTROSE 5%-WATER - 50 ML IVPB ONE (10:08)
[2019-02-05] MEDS ORDERED: cefTRIAXone SODIUM 1 GM VIAL ONE (10:08)
[2019-02-05] MEDS: SOLIFENACIN SUCCINATE 5 MG TAB (FP) PO SCH (10:11)
[2019-02-05] MEDS: PANTOPRAZOLE 40 MG TABLET (FP) PO SCH (10:12)
[2019-02-05] MEDS: GABAPENTIN 300 MG CAPSULE (FP) PO SCH (10:12)
[2019-02-05] MEDS: DULoxetine HCL 30 MG CAPSULE.DR (FP) PO SCH (10:12)
[2019-02-05] MEDS: ASPIRIN 81 MG CHEWABLE TABLETS PO SCH (10:12)
[2019-02-05] MEDS: NADOLOL 20 MG TABLET (FP) PO SCH (10:13)
[2019-02-05] MEDS: LACTOBACILLUS ACIDOPHILUS 1 TABLET PO SCH (10:13)
[2019-02-05] MEDS: CEFTRIAXONE 1 GM in DEXTROSE 5%-WATER - 50 ML IVPB SCH (10:15)
[2019-02-05] MEDS: RAMIPRIL 1.25 MG CAPSULE PO SCH (10:16)
[2019-02-05] MEDS: ENOXAPARIN NA (PORCINE) 40 MG/0.4 ML DISP.SYRIN SQ SCH (10:16)
[2019-02-05] MEDS: TICAGRELOR 60 MG TABLET PO SCH ×2 (10:17→23:04)
[2019-02-05] MEDS: FENOFIBRIC ACID 45 MG CAP PO SCH (10:19)
--- NOTE | 2019-02-05 11:14 | PN ---
Progress Note (short form) - Note Progress Note: Attending Surgeon Seen in f/u; tolerating clear liquids VSS AF abdo-soft; flat and non tender WBC wnl IMP: ?? biliary colic; clearly not acute cholecystitis; HIDA results pending; if he needs a lap jaimie suggest it should be done at a tertiary care facility given his xtensive cardiac hx. and post d/c he should f/u w/his PPC/ Outside Sales Associate for risk assessment. Ralf Martinez MD FACS
--- NOTE | 2019-02-05 11:30 | PN ---
Physical Exam: SUBJECTIVE: Patient seen and examined, OBJECTIVE: Vital Signs Period Temp Pulse Resp BP Sys/Wilkins Pulse Ox Last 24 Hr 97.8 F-98.2 F 56-81 18-18 129-153/71-92 98 GENERAL: The patient is awake, alert, and fully oriented, in no acute distress. HEAD: Normal with no signs of trauma. EYES: PERRL, extraocular movements intact, sclera anicteric, conjunctiva clear. No ptosis. ENT: Ears normal, nares patent, oropharynx clear without exudates, moist mucous membranes. NECK: Trachea midline, full range of motion, supple. LUNGS: Breath sounds equal, clear to auscultation bilaterally, no wheezes, no crackles, no accessory muscle use. HEART: Regular rate and rhythm, S1, S2 without murmur, rub or gallop. ABDOMEN: Soft, nontender, nondistended, normoactive bowel sounds, no guarding, no rebound, no hepatosplenomegaly, no masses. EXTREMITIES: 2+ pulses, warm, well-perfused, no edema. NEUROLOGICAL: Cranial nerves II through XII grossly intact. Normal speech, gait not observed. PSYCH: Normal mood, normal affect. SKIN: Warm, dry, normal turgor, no rashes or lesions noted Laboratory Results - last 24 hr 02/03/19 02/04/19 02/05/19 11:33 09:00 07:15 WBC 4.1 RBC 3.90 L Hgb 11.1 L Hct 33.7 L MCV 86.4 MCH 28.5 MCHC 33.0 RDW 13.8 Plt Count 257 MPV 8.0 Absolute Neuts (auto) 2.4 Neutrophils % 57.5 Lymphocytes % 24.8 Monocytes % 14.0 H Eosinophils % 3.5 Basophils % 0.2 Nucleated RBC % 0 Sodium Potassium Chloride Carbon Dioxide Anion Gap BUN Creatinine Creat Clearance w eGFR Random Glucose Calcium Total Bilirubin AST ALT Alkaline Phosphatase Total Protein Albumin Total T3 95.00 HIV 1&2 Antibody Screen Negative HIV P24 Antigen Negative 02/05/19 07:15 WBC RBC Hgb Hct MCV MCH MCHC RDW Plt Count MPV Absolute Neuts (auto) Neutrophils % Lymphocytes % Monocytes % Eosinophils % Basophils % Nucleated RBC % Sodium 140 Potassium 3.9 Chloride 108 H Carbon Dioxide 27 Anion Gap 5 L BUN 8 Creatinine 0.9 Creat Clearance w eGFR 88.27 Random Glucose 109 H Calcium 8.8 Total Bilirubin 0.2 AST 17 ALT 22 Alkaline Phosphatase 82 Total Protein 6.3 L Albumin 3.0 L Total T3 HIV 1&2 Antibody Screen HIV P24 Antigen Active Medications Generic Name Dose Route Start Last Admin Trade Name Freq PRN Reason Stop Dose Admin Acetaminophen 1,000 mg 02/04/19 13:55 02/05/19 06:32 Ofirmev Injection - IVPB 1,000 mg Q6H PRN Administration FEVER Aspirin 81 mg 02/04/19 10:00 02/05/19 10:12 Asa - PO 81 mg DAILY KEVYN Administration Atorvastatin Calcium 40 mg 02/04/19 22:00 02/04/19 22:05 Lipitor - PO 40 mg HS KEVYN Administration Baclofen 10 mg 02/03/19 23:00 02/04/19 22:06 Lioresal - PO 10 mg HS KEVYN Administration Duloxetine HCl 90 mg 02/04/19 10:00 02/05/19 10:12 Cymbalta - PO 90 mg DAILY KEVYN Administration Enoxaparin Sodium 40 mg 02/04/19 10:00 02/05/19 10:16 Lovenox - SQ 40 mg DAILY KEVYN Administration Fenofibric Acid 45 mg 02/04/19 10:00 02/05/19 10:19 Trilipix - PO 45 mg DAILY KEVYN Administration Gabapentin 1,200 mg 02/03/19 22:00 02/04/19 22:06 Neurontin - PO 1,200 mg HS KEVYN Administration Gabapentin 600 mg 02/04/19 10:00 02/05/19 10:12 Neurontin - PO 600 mg DAILY KEVYN Administration Ceftriaxone Sodium 1 gm/ 50 mls @ 100 mls/hr 02/04/19 10:00 02/05/19 10:15 Dextrose IVPB 100 mls/hr DAILY KEVYN Administration Protocol Sodium Chloride 1,000 mls @ 75 mls/hr 02/03/19 19:00 02/04/19 22:15 Normal Saline - IV 75 mls/hr ASDIR KEVYN Administration Ketorolac Tromethamine 15 mg 02/03/19 16:04 02/04/19 12:10 Toradol Injection - IVPUSH 02/08/19 16:03 15 mg Q6H PRN Administration PAIN LEVEL 6-10 Lactobacillus Acidophilus 1 tab 02/03/19 17:15 02/05/19 10:13 Bacid - PO 1 tab DAILY KEVYN Administration Levothyroxine Sodium 112 mcg/ 137 mcg 02/04/19 07:00 02/05/19 06:04 Levothyroxine Sodium 25 mcg PO 137 mcg DAILY@0700 KEVYN Administration Montelukast Sodium 10 mg 02/04/19 22:00 02/04/19 22:06 Singulair - PO 10 mg HS KEVYN Administration Nadolol 60 mg 02/04/19 10:00 02/05/19 10:13 Corgard - PO 60 mg DAILY KEVYN Administration Pantoprazole Sodium 40 mg 02/03/19 19:15 02/05/19 10:12 Protonix - PO 40 mg DAILY KEVYN Administration Ramipril 1.25 mg 02/04/19 10:00 02/05/19 10:16 Altace - PO 1.25 mg DAILY KEVYN Administration Solifenacin 5 mg 02/04/19 10:00 02/05/19 10:11 Vesicare - PO 5 mg DAILY KEVYN Administration Ticagrelor 60 mg 02/03/19 22:54 02/05/19 10:17 Brilinta PO 60 mg BID KEVYN Administration Trazodone HCl 50 mg 02/03/19 22:54 02/04/19 22:06 Desyrel - PO 50 mg HS KEVYN Administration ASSESSMENT/PLAN:
--- NOTE | 2019-02-05 11:54 | PN ---
Progress Note (short form) - Note Progress Note: reports less groin pain Vital Signs Period Temp Pulse Resp BP Sys/Wilkins Pulse Ox Last 24 Hr 97.8 F-98.2 F 56-81 18-18 129-153/71-92 98 cor-rrr lungs clear abd soft,nt left scrotal induration - a bit less tender , abit less swollen ext no edema CBC, BMP 02/05/19 07:15 02/05/19 07:15 Microbiology 02/03/19 10:18 Urine - Urine Hodge Urine Culture - Final NO GROWTH OBTAINED a/p right epiddiymitis- ecoli UTI resistant to amp and bactrim, sensitive to ceftriaxone and levaquin abdominal discomfort negative endoscopy as outpt awaiting hida scan results f/u with urology continue ceftriaxone for now-fay #3 d/w hospitalist- if HIDA negative and he tolerates a diet, can switch back to po levaquin for another week with urology f/u chronic hodge catheter history MS would continue probiotics for one month given prior history of cdiff several years ago please call back if needed Problem List - Problems (1) Epididymo-orchitis, acute Code(s): N45.3 - EPIDIDYMO-ORCHITIS (2) Abdominal pain Code(s): R10.9 - UNSPECIFIED ABDOMINAL PAIN (3) History of Clostridium difficile colitis Code(s): Z86.19 - PERSONAL HISTORY OF OTHER INFECTIOUS AND PARASITIC DISEASES
--- NOTE | 2019-02-05 13:11 | DS ---
Physical Exam: SUBJECTIVE: Patient seen and examined, symptoms improved. Tolerating diet well, no new nausea/vomiting or new concerns. OBJECTIVE: Vital Signs Period Temp Pulse Resp BP Sys/Wilkins Pulse Ox Last 24 Hr 97.8 F-98.2 F 56-81 18-18 129-153/71-92 98-100 PHYSICAL EXAM GENERAL: AA, in no acute distress Chest: CTAB, no rales or wheezing Abdomen:Soft, NT throughout, no voluntary or involuntary guarding or rigidity Genital: right scrotal swelling and erythema markedly improved, minimally tender Extremities: no edema Neck: soft, supple, no JVD LABS Laboratory Results - last 24 hr 02/04/19 02/05/19 02/05/19 09:00 07:15 07:15 WBC 4.1 RBC 3.90 L Hgb 11.1 L Hct 33.7 L MCV 86.4 MCH 28.5 MCHC 33.0 RDW 13.8 Plt Count 257 MPV 8.0 Absolute Neuts (auto) 2.4 Neutrophils % 57.5 Lymphocytes % 24.8 Monocytes % 14.0 H Eosinophils % 3.5 Basophils % 0.2 Nucleated RBC % 0 Sodium 140 Potassium 3.9 Chloride 108 H Carbon Dioxide 27 Anion Gap 5 L BUN 8 Creatinine 0.9 Creat Clearance w eGFR 88.27 Random Glucose 109 H Calcium 8.8 Total Bilirubin 0.2 AST 17 ALT 22 Alkaline Phosphatase 82 Total Protein 6.3 L Albumin 3.0 L Total T3 95.00 Microbiology 02/03/19 10:18 Urine - Urine Hodge Urine Culture - Final NO GROWTH OBTAINED Abdominal US: Right upper abdomen ultrasound. No prior is available for comparison. The liver measures 19.7 cm in sagittal length with a moderately dense echotexture. Gallbladder is adequately distended with 10 mm echogenic density without that may represent a polyp. Cannot rule out a non shadowing stone. There are also internal echoes in the gallbladder likely representing an artifact. Cannot rule out a sludge. There is no wall thickening or pericholecystic free fluid. No intra or extrahepatic bile duct dilatation is seen. The right kidney measures 10.3 cm sagittal length and appears unremarkable. Visualized portion of the pancreatic head and body appear unremarkable Visualized portion of the proximal abdominal aorta and inferior vena cava appear unremarkable. Normal flow in the main portal vein. IMPRESSION: Hepatomegaly with fatty infiltration versus hepatocellular disease. 10 mm echogenic non shadowing density in the gallbladder that may represent a polyp versus a non shadowing nonmobile stone. Follow-up is needed. CT A/P: The lung bases are clear. The liver is enlarged measuring 22.1 cm in craniocaudad dimension. It is hypodense in texture consistent with diffuse fatty infiltration. No mass lesions identified within the liver. The spleen is enlarged measuring 12.9 cm. The pancreas, adrenal glands and kidneys demonstrate no significant abnormalities. Small gallstones are identified within the gallbladder. There is no evidence of intra-abdominal or retroperitoneal lymphadenopathy or fluid collections. There is no evidence of pneumoperitoneum, bowel obstruction or intra-abdominal abscess. There is no CT evidence of acute appendicitis or diverticulitis. Examination of the pelvis demonstrates no evidence of pelvic masses, fluid collections or lymphadenopathy. There is a fat-containing right inguinal hernia. IMPRESSION: 1. Hepatosplenomegaly with diffuse fatty infiltration of the liver. 2. Cholelithiasis. 3. No acute pathology within the abdomen or pelvis. Please see above discussion. Scrotal US: Scrotal ultrasound No prior is available for comparison The right testicle measures 3.9 x 2.6 cm and with heterogeneous echotexture. Prominent color Doppler flow is present. Duplex evaluation demonstrates arterial and venous flow. The right epididymal head, body and tail measure 1.5, 0.6 and 0.6 cm in AP dimension, respectively with prominent color Doppler flow. A small right hydrocele is present. The left testicle measures 4.4 x 2 cm in sagittal and AP dimension with a homogeneous echotexture. Normal duplex evaluation with arterial and venous flow demonstrated. Normal color Doppler flow. The left epididymal head, body and tail measure 0.8, 0.3 and 0.4 cm, respectively. There is a tiny left epididymal head cyst measuring 3 mm. There is a trace of left hydrocele. There is no evidence of a varicocele, bilaterally IMPRESSION: Findings consistent with right epididymo orchitis. Follow-up scrotal ultrasound is recommended for further evaluation and to further assess the right testicular echotexture. Small right hydrocele. Tiny left epididymal head cyst versus spermatocele. HIDA scan: HIDA scan was performed on 02/04/2019 without difficulty. The patient was injected with 6.4 mCi of technetium Choletec. There is rapid visualization of the biliary tree with the gallbladder noted at approximately 20 minutes. The common duct was visualized and at 45 minutes there was flow into the jejunum. This is a normal study. HOSPITAL COURSE: Date of Admission:02/03/19 Date of Discharge: 02/05/19 Minutes to complete discharge: 40 Discharge Summary Reason For Visit: ACUTE EPIDIDYMO-ORCHITIS Current Active Problems Abdominal pain (Acute) Epididymo-orchitis, acute (Acute) Fever (Acute) History of Clostridium difficile colitis (Acute) UTI (urinary tract infection) (Acute) Hospital Course: 53 yom with pMHx of CAD s/p multiple PCI, MS, chronic indwelling hodge, (last hodge change 01/11), recurrent UTIs, Recent admission at [facility] with ? epididymitis, cholelithiasis, admitted with recurrent right epididymo-orchitis and abdominal pain. Patient had a scrotal ultrasound as above that confirmed the findings. He was placed on Ceftriaxone per infectious disease recommendations. His symptoms improved. He was afebrile with normal WBC during his stay. He also reported vague abdominal symptoms, intermittent for last 2 months. His abdominal imaging showed gall stones, he had normal LFTs and was tolerating diet well. He had HIDA scan that was negative. Surgery was consulted, his symptoms were felt to be related to biliary colic and recommended tertiary care center for any surgical intervention in the future given his extensive cardiac history. He is tolerating diet well, afebrile with normal WBC and improved symptoms. He will be discharged in stable condition on levaquin for 1 more week per infectious disease recommendations. Condition: Stable - Instructions Diet, Activity, Other Instructions: You were admitted with epididymitis and placed on antibiotics. You were also noted with gall stones. You were seen by infectious disease. You had HIDA scan that was negative and were evaluated by surgery. In case you need surgery for gall bladder in the future, you are are advised by our surgeons that it be done at a tertiary care center given your cardiac history. MEDICATIONS: Antibiotic levaquin 500 mg daily for 1 week starting tomorrow 02/06/2019. Continue other home medications as before. INSTRUCTIONS: Cardiac low fat diet. FOLLOW UP: With your primary care doctor in 1 week With your urologist Dr. Moore in 1 week to address if you need additional treatment for your infection With your surgeon and network control supervisor in 1-2 weeks. If you notice any new fevers, chills, worsening scrotal swelling/pain or discharge, worsening pain, inability to eat or any new concerns, please call 911 or come to the ED. Referrals: Dario Moore MD [Staff Physician] - Martin Grasia [Primary Care Provider] - Disposition: VNS/HOME HEALTH CARE - Home Medications Comprehensive Discharge Medication List: Ambulatory Orders Aspirin 325 mg PO DAILY 02/03/19 Baclofen 10 mg PO BID 02/03/19 Duloxetine HCl [Cymbalta -] 90 mg PO DAILY 02/03/19 Fenofibrate Nanocrystallized [Tricor] 144 mg PO DAILY 02/03/19 Gabapentin [Neurontin] 600 mg PO QID 02/03/19 Levothyroxine Sodium [Synthroid] 137 mcg PO DAILY 02/03/19 Nadolol [Corgard] 40 mg PO DAILY 02/03/19 Oxybutynin Chloride [Oxybutynin Chloride ER] 10 mg PO BID 02/03/19 Ramipril 1.25 mg PO DAILY 02/03/19 Ranitidine HCl 150 mg PO BID 02/03/19 Ticagrelor [Brilinta] 90 mg PO BID 02/03/19 traZODone HCL [Trazodone HCl] 100 mg PO HS 02/03/19 Atorvastatin Ca [Lipitor] 40 mg PO HS 02/04/19 Montelukast Sodium [Singulair] 10 mg PO HS 02/04/19 Lactobacillus Acidophilus [Bacid -] 1 tab PO DAILY #7 tab 02/05/19 Levofloxacin [Levaquin] 500 mg PO DAILY #7 tablet 02/05/19 This patient is new to me today: No Emergency Visit: Yes ED Registration Date: 02/03/19 Care time: The patient presented to the Emergency Department on the above date and was hospitalized for further evaluation of their emergent condition. Critical Care patient: No - Discharge Referral Referred to [facility] Med P.C.: No
[2019-02-05] MEDS: SODIUM CHLORIDE 1,000 ML IV SCH ×2 (14:28→23:04)
--- NOTE | 2019-02-05 17:33 | CON.GU ---
Consult Consult Specialty:: Referred by:: medicine Reason for Consultation:: orchitis - History of Present Illness Chief Complaint: testicular pain and swelling History of Present Illness: 53 year old male with MS and an indwelling hodge cath for a neurogenic bladder presents with testicular swelling and pain. US confirms orchitis. no abscess. He is feeling better. 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) ENT: Yes: Other (chronic sinus infection) Endocrine: Yes: Hypothyroidism - Past Surgical History Past Surgical History: Yes: Carotid Endarterectomy Additional Surgical History: sinus surgery - Alcohol/Substance Use Hx Alcohol Use: No - Smoking History Smoking history: Never smoked - Social History Usual Living Arrangement: With Parent Occupation: disability History of Recent Travel: No Home Medications - Allergies Allergies/Adverse Reactions: Allergies Allergy/AdvReac Type Severity Reaction Status Date / Time shellfish derived Allergy Verified 02/03/19 09:20 - Home Medications Home Medications: Ambulatory Orders Aspirin 325 mg PO DAILY 02/03/19 Baclofen 10 mg PO BID 02/03/19 Duloxetine HCl [Cymbalta -] 90 mg PO DAILY 02/03/19 Fenofibrate Nanocrystallized [Tricor] 144 mg PO DAILY 02/03/19 Gabapentin [Neurontin] 600 mg PO QID 02/03/19 Levothyroxine Sodium [Synthroid] 137 mcg PO DAILY 02/03/19 Nadolol [Corgard] 40 mg PO DAILY 02/03/19 Oxybutynin Chloride [Oxybutynin Chloride ER] 10 mg PO BID 02/03/19 Ramipril 1.25 mg PO DAILY 02/03/19 Ranitidine HCl 150 mg PO BID 02/03/19 Ticagrelor [Brilinta] 90 mg PO BID 02/03/19 traZODone HCL [Trazodone HCl] 100 mg PO HS 02/03/19 Atorvastatin Ca [Lipitor] 40 mg PO HS 02/04/19 Montelukast Sodium [Singulair] 10 mg PO HS 02/04/19 Lactobacillus Acidophilus [Bacid -] 1 tab PO DAILY #7 tab 02/05/19 Levofloxacin [Levaquin] 500 mg PO DAILY #7 tablet 02/05/19 Review of Systems - Review of Systems Genitourinary: reports: Dysuria, Testicular Pain, Testicular Swelling Physical Exam- Vital Signs: Vital Signs Temperature 97.9 F 02/05/19 14:06 Pulse Rate 59 L 02/05/19 14:06 Respiratory Rate 18 02/05/19 14:06 Blood Pressure 132/66 02/05/19 14:06 O2 Sat by Pulse Oximetry (%) 100 02/05/19 09:00 Gastrointestinal: Yes: Soft Renal/: No: Bladder Distention, CVA Tenderness - Left, CVA Tenderness - Right , Hematuria Kidneys: No: Flank Pain Left, FLank Pain Right Testicles: Yes: Tenderness Labs: CBC, BMP 02/05/19 07:15 02/05/19 07:15 Imaging - Results Ultrasound: Report Reviewed Problem List - Problems (1) Epididymo-orchitis, acute Assessment/Plan: improving. continue antibiotics, scrotal elevation, ice packs. follow up as outpatient Code(s): N45.3 - EPIDIDYMO-ORCHITIS
[2019-02-05] MEDS: traZODone HCL 50 MG TABLET (FP) PO SCH (23:02)
[2019-02-05] MEDS: ATORVASTATIN CA 40 MG TABLET (FP) PO SCH (23:03)
[2019-02-05] MEDS: BACLOFEN 10 MG TABLET (FP) PO SCH (23:03)
[2019-02-05] MEDS: GABAPENTIN 400 MG CAPSULE (FP) PO SCH (23:03)
[2019-02-05] MEDS: MONTELUKAST NA 10 MG TABLET PO SCH (23:06)
[2019-02-05] MEDS ORDERED: OXYBUTYNIN CHLORIDE 5 MG TABLET PO ONE (23:33)
[2019-02-06] MEDS: LEVOTHYROXINE 112 MCG, LEVOTHYROXINE 25 MCG PO SCH (06:00)
--- NOTE | 2019-02-06 09:28 | PN ---
Physical Exam: SUBJECTIVE: Patient seen and examined, no complaints, tolerating diet well. OBJECTIVE: Vital Signs Period Temp Pulse Resp BP Sys/Wilkins Pulse Ox Last 24 Hr 97.8 F-98.2 F 50-62 18-20 111-155/66-78 100 Intake & Output 02/03/19 02/04/19 02/05/19 02/06/19 23:59 23:59 23:59 23:59 Intake Total 400 3050 2800 700 Output Total 3400 4800 1300 Balance 400 -350 -2000 -600 Weight 200 lb 9 oz GENERAL: sitting in in bed in no acute distress Chest: CTAB, no rales or wheezing Abdomen;Soft, NT throughout, ND, positive bowel sounds, neg Ashraf's sign, no suprapubic or CVA tenderness Extremities: no edema Genital: improved right scrotal swelling and tenderness, resolved erythema CVS:S1S2 regular Active Medications Generic Name Dose Route Start Last Admin Trade Name Freq PRN Reason Stop Dose Admin Aspirin 81 mg 02/04/19 10:00 02/05/19 10:12 Asa - PO 81 mg DAILY KEVYN Administration Atorvastatin Calcium 40 mg 02/04/19 22:00 02/05/19 23:03 Lipitor - PO 40 mg HS KEVYN Administration Baclofen 10 mg 02/03/19 23:00 02/05/19 23:03 Lioresal - PO 10 mg HS KEVYN Administration Duloxetine HCl 90 mg 02/04/19 10:00 02/05/19 10:12 Cymbalta - PO 90 mg DAILY KEVYN Administration Enoxaparin Sodium 40 mg 02/04/19 10:00 02/05/19 10:16 Lovenox - SQ 40 mg DAILY KEVYN Administration Fenofibric Acid 45 mg 02/04/19 10:00 02/05/19 10:19 Trilipix - PO 45 mg DAILY KEVYN Administration Gabapentin 1,200 mg 02/03/19 22:00 02/05/19 23:03 Neurontin - PO 1,200 mg HS KEVYN Administration Gabapentin 600 mg 02/04/19 10:00 02/05/19 10:12 Neurontin - PO 600 mg DAILY KEVYN Administration Ceftriaxone Sodium 1 gm/ 50 mls @ 100 mls/hr 02/04/19 10:00 02/05/19 10:15 Dextrose IVPB 100 mls/hr DAILY KEVYN Administration Protocol Sodium Chloride 1,000 mls @ 75 mls/hr 02/03/19 19:00 02/05/19 23:04 Normal Saline - IV Not Given ASDIR KEVYN Ketorolac Tromethamine 15 mg 02/03/19 16:04 02/04/19 12:10 Toradol Injection - IVPUSH 02/08/19 16:03 15 mg Q6H PRN Administration PAIN LEVEL 6-10 Lactobacillus Acidophilus 1 tab 02/03/19 17:15 02/05/19 10:13 Bacid - PO 1 tab DAILY KEVYN Administration Levothyroxine Sodium 112 mcg/ 137 mcg 02/04/19 07:00 02/06/19 06:00 Levothyroxine Sodium 25 mcg PO 137 mcg DAILY@0700 KEVYN Administration Montelukast Sodium 10 mg 02/04/19 22:00 02/05/19 23:06 Singulair - PO 10 mg HS KEVYN Administration Nadolol 60 mg 02/04/19 10:00 02/05/19 10:13 Corgard - PO 60 mg DAILY KEVYN Administration Pantoprazole Sodium 40 mg 02/03/19 19:15 02/05/19 10:12 Protonix - PO 40 mg DAILY KEVYN Administration Ramipril 1.25 mg 02/04/19 10:00 02/05/19 10:16 Altace - PO 1.25 mg DAILY KEVYN Administration Solifenacin 5 mg 02/04/19 10:00 02/05/19 10:11 Vesicare - PO 5 mg DAILY KEVYN Administration Ticagrelor 60 mg 02/03/19 22:54 02/05/19 23:04 Brilinta PO 60 mg BID KVEYN Administration Trazodone HCl 50 mg 02/03/19 22:54 02/05/19 23:02 Desyrel - PO 50 mg HS KEVYN Administration ASSESSMENT/PLAN: 53 yom with pMHx of CAD s/p multiple PCI, MS, chronic indwelling hodge recurrent UTIs, Recent admission with ?epididymitis, cholelithiasis, admitted with recurrent right epididymo-orchitis and abdominal pain. -Acute recurrent right epididymo-orchitis with failure of PO abx -Cholelithiasis -?Right uncomplicated Inguinal hernia -Chronic indwelling hodge -Multiple sclerosis with dystonia, parkinsonian syndrome -CAD s/p multiple PCI Plan: Doing well. Afebrile, tolerating diet well. Scrotal findings improved. ID input noted. Levaquin for 7 days. Urology input noted. Surgery recs noted and discussed in detail with patient, relayed that current symp likely from biliary colic and elective surgery at tertiary care center given his extensive cardiac history. Discussed warning symptoms including worsening pain, jaundice, inability to eat and potential complications including infection/inflammation/biliary stones with obstructive jaundice, fevers in which case to call 911 or come to ED immediately. Patient relays full understanding. D/caio on 02/05. Agrees to go home today d/c home with services. Plan co-ordinated with RN and Social work for disposition arrangement. Visit type - Emergency Visit Emergency Visit: Yes ED Registration Date: 02/03/19 Care time: The patient presented to the Emergency Department on the above date and was hospitalized for further evaluation of their emergent condition. - New Patient This patient is new to me today: No - Critical Care Critical Care patient: No - Discharge Referral Referred to [facility] Med [facility] No
[2019-02-06] MEDS ORDERED: PT OWN MED DRAWER 7, Y5N ONE (09:54)
[2019-02-06] MEDS ORDERED: DEXTROSE 5%-WATER - 50 ML IVPB ONE (09:55)
[2019-02-06] MEDS ORDERED: cefTRIAXone SODIUM 1 GM VIAL ONE (09:55)
[2019-02-06] MEDS: LACTOBACILLUS ACIDOPHILUS 1 TABLET PO SCH (10:44)
[2019-02-06] MEDS: ENOXAPARIN NA (PORCINE) 40 MG/0.4 ML DISP.SYRIN SQ SCH (10:44)
[2019-02-06] MEDS: DULoxetine HCL 30 MG CAPSULE.DR (FP) PO SCH (10:44)
[2019-02-06] MEDS: ASPIRIN 81 MG CHEWABLE TABLETS PO SCH (10:44)
[2019-02-06] MEDS: PANTOPRAZOLE 40 MG TABLET (FP) PO SCH (10:44)
[2019-02-06] MEDS: GABAPENTIN 300 MG CAPSULE (FP) PO SCH (10:45)
[2019-02-06] MEDS: SOLIFENACIN SUCCINATE 5 MG TAB (FP) PO SCH (10:45)
[2019-02-06] MEDS: RAMIPRIL 1.25 MG CAPSULE PO SCH (10:46)
[2019-02-06] MEDS: TICAGRELOR 60 MG TABLET PO SCH (10:47)
[2019-02-06] MEDS: FENOFIBRIC ACID 45 MG CAP PO SCH (10:49)
[2019-02-06] MEDS: CEFTRIAXONE 1 GM in DEXTROSE 5%-WATER - 50 ML IVPB SCH (10:54)
[2019-02-06] MEDS: NADOLOL 20 MG TABLET (FP) PO SCH ×2 (12:12→12:21)
[2019-02-06 13:03] VITALS: BP 142/81; PULSE 52; TEMP 97.9
== END 2019-02-06 13:33 | disposition home health service (06) | DRG 728 ==
LOC: JER 09:06 → JERBED 15:44 → OBSVTOIN 16:04 → J5S 21:38
PROVIDERS: ADMIT Hospitalist; ATTEND Hospitalist
DX: N45.1 Epididymitis (principal); T83.511A Infection and inflammatory reaction due to indwelling urethral catheter, initial encounter; N39.0 Urinary tract infection, site not specified; K80.10 Calculus of gallbladder with chronic cholecystitis without obstruction; G35 Multiple sclerosis; G20 Parkinson's disease; R16.2 Hepatomegaly with splenomegaly, not elsewhere classified; I25.10 Atherosclerotic heart disease of native coronary artery without angina pectoris; I25.2 Old myocardial infarction; E78.5 Hyperlipidemia, unspecified; E03.9 Hypothyroidism, unspecified; R10.9 Unspecified abdominal pain; R33.9 Retention of urine, unspecified; J32.9 Chronic sinusitis, unspecified; K40.90 Unilateral inguinal hernia, without obstruction or gangrene, not specified as recurrent; G24.9 Dystonia, unspecified; Z95.5 Presence of coronary angioplasty implant and graft; Z86.19 Personal history of other infectious and parasitic diseases
CPT/HCPCS: 36415; 74177-TC; 76705-TC; 76870-TC; 78226-TC; 80053; 80307; 81003; 82150; 82550; 83690; 83735; 84100; 84439; 84443; 84480; 84484; 85025; 85610; 85730; 87086; 87389; 93005; 93010; 97116-GP; 97162-GP; 99283-25; A9537; G0378; J0131; J0475; J7030

== ENCOUNTER 2025-01-20 06:22 | Day surgery (SDC) | payer OTHER ==
[2025-01-19 11:57] VITALS: BMI 29.7
[2025-01-20 09:44] VITALS: TEMP 97.9
[2025-01-20 10:24] VITALS: RESP 16
[2025-01-20 10:25] VITALS: BP 125/76; PULSE 73
== END 2025-01-20 10:45 | disposition home or self-care (01) ==
LOC: JASU-ENDO 06:22
PROVIDERS: ATTEND Internal Medicine Gastroenterology
PROC: 0DJD8ZZ Inspection of Lower Intestinal Tract, Via Natural or Artificial Opening Endoscopic (ICD-10-PCS; principal; 2025-01-20 09:00)
DX: Z12.11 Encounter for screening for malignant neoplasm of colon (principal); Z86.0101 Personal history of adenomatous and serrated colon polyps; Z83.719 Family history of colon polyps, unspecified
CPT/HCPCS: 82962